=== PATIENT | female | born 1970 | race Caucasian/White ===

== ENCOUNTER 2017-02-01 12:51 | Inpatient (IN) | payer MEDICAID ==
[~2017-02-01] VITALS: Ht 167.6 cm; Wt 69.6 kg
[2017-02-01 13:50] LABS: BASOPHIL % 0.5 % (0-2); PLATELET COUNT 219 x10^3mcL (130-400)
[2017-02-01 14:07] LABS: microscopic required? NO
[2017-02-01 14:18] LABS: UA SPECIFIC GRAVITY <=1.005 (1.005-1.035); urine erythrocyte NEGATIVE (NEGATIVE)
[2017-02-01 14:29] LABS: AMPHETAMINE QUAL UR NONE DETECTED (NEG <=1000)
[2017-02-01 14:40] LABS: ALBUMIN 3.4 g/dL (3.4-5.0); ALKALINE PHOSPHATASE 175 U/L (46-116); ALT/SGPT 88 U/L (14-59); AMYLASE 49 U/L (25-115); AST/SGOT 44 U/L (15-37); BILIRUBIN TOTAL 0.72 mg/dL (0.20-1.00); CALCIUM 8.9 mg/dL (8.5-10.1); CARBON DIOXIDE 22.9 mmol/L (21-32); CHLORIDE SERUM 92 mmol/L (98-107); CREATININE SERUM 0.8 mg/dL (0.6-1.0); GFR1 > 60 mL/min; LIPASE 316 IU/L (73-393); POTASSIUM SERUM 3.7 mmol/L (3.5-5.1); SODIUM SERUM 126 mmol/L (136-145); T4(THYROXINE) 10.9 ug/dL (4.7-13.3); TOTAL PROTEIN, SERUM 7.8 g/dL (6.4-8.2)
[2017-02-01 14:43] LABS: CHOLESTEROL 206 mg/dL (<200); HDL CHOLESTEROL 29 mg/dL (40-60)
[2017-02-01 14:44] LABS: GLUCOSE SERUM 715 mg/dL (74-106)
[2017-02-01 16:23] LABS: MAGNESIUM 2.2 mg/dL (1.8-2.4); PHOSPHOROUS 3.4 mg/dL (2.5-4.9)
[2017-02-01 16:26] LABS: CHOLESTEROL 204 mg/dL (<200); CHOLESTEROL/HDL RATIO 6.8; HDL CHOLESTEROL 30 mg/dL (40-60); TRIGLYCERIDES 413 mg/dL (<150)
[2017-02-01 16:55] VITALS: BP 124/59
[2017-02-01 20:53] VITALS: BP 114/56
[2017-02-01 21:33] LABS: CALCIUM 7.8 mg/dL (8.5-10.1); CARBON DIOXIDE 26.4 mmol/L (21-32); CHLORIDE SERUM 104 mmol/L (98-107); CREATININE SERUM 0.7 mg/dL (0.6-1.0); GFR1 > 60 mL/min; GLUCOSE SERUM 305 mg/dL (74-106); POTASSIUM SERUM 3.3 mmol/L (3.5-5.1); SODIUM SERUM 136 mmol/L (136-145)
[2017-02-02] VITALS (9 sets, daily range): BP systolic 97–127; BP diastolic 44–68
[2017-02-02 06:08] LABS: BASOPHIL % 0.5 % (0-2); PLATELET COUNT 212 x10^3mcL (130-400); RED CELL DISTRIBUTION WIDTH 13.8 % (11.5-14.5)
[2017-02-02 06:41] LABS: CALCIUM 8.3 mg/dL (8.5-10.1); CARBON DIOXIDE 26.6 mmol/L (21-32); CHLORIDE SERUM 107 mmol/L (98-107); CREATININE SERUM 0.5 mg/dL (0.6-1.0); GFR1 > 60 mL/min; GLUCOSE SERUM 186 mg/dL (74-106); MAGNESIUM 2.1 mg/dL (1.8-2.4); PHOSPHOROUS 3.1 mg/dL (2.5-4.9); POTASSIUM SERUM 3.9 mmol/L (3.5-5.1); SODIUM SERUM 141 mmol/L (136-145)
[2017-02-03 05:13] VITALS: BP 106/50
[2017-02-03 06:11] LABS: PLATELET COUNT 205 x10^3mcL (130-400); RED CELL DISTRIBUTION WIDTH 14.1 % (11.5-14.5)
[2017-02-03 06:32] LABS: CALCIUM 8.5 mg/dL (8.5-10.1); CARBON DIOXIDE 24.2 mmol/L (21-32); CHLORIDE SERUM 104 mmol/L (98-107); CREATININE SERUM 0.6 mg/dL (0.6-1.0); GFR1 > 60 mL/min; GLUCOSE SERUM 310 mg/dL (74-106); MAGNESIUM 1.9 mg/dL (1.8-2.4); POTASSIUM SERUM 3.7 mmol/L (3.5-5.1); SODIUM SERUM 136 mmol/L (136-145)
[2017-02-03 09:30] VITALS: BP 115/73
[2017-02-03 12:27] LABS: ATYPICAL LYMPH 4 %; BAND NEUTROPHIL 0 % (0-10); BASOPHIL 0 % (0-2); MONOCYTE 5 % (0-7); SEGMENTED NEUTROPHILS 38 % (37-75)
[2017-02-03 12:28] LABS: PLATELET MORPHOLOGY PLATELETS NORMAL; rbc morphology (normal/abnorm) ABNORMAL (NORMAL)
[2017-02-03 14:45] VITALS: BP 126/50
[2017-02-03] MEDS ORDERED: LIPI10 PO (15:02)
[2017-02-03] MEDS ORDERED: ZES10 PO (15:02)
[2017-02-03] MEDS ORDERED: METFORMIN HCL1000 MG PO (15:03)
[2017-02-03] MEDS ORDERED: BG FS (15:03)
[2017-02-03] MEDS ORDERED: GLU5 PO (15:04)
[2017-02-03 15:24] VITALS: BP 126/50
== END 2017-02-03 16:51 | disposition home or self-care (01) | DRG 420 ==
LOC: ED 12:51 → DU 15:22
PROVIDERS: Emergency Medicine; Family Medicine; ADMIT Family Medicine
DX: E11.00 Type 2 diabetes mellitus with hyperosmolarity without nonketotic hyperglycemic-hyperosmolar coma (NKHHC) (principal); E87.8 Other disorders of electrolyte and fluid balance, not elsewhere classified; E87.1 Hypo-osmolality and hyponatremia; E83.51 Hypocalcemia; I10 Essential (primary) hypertension; E78.5 Hyperlipidemia, unspecified; R74.0 Nonspecific elevation of levels of transaminase and lactic acid dehydrogenase [LDH]; Z68.24 Body mass index [BMI] 24.0-24.9, adult
CPT/HCPCS: 36600; 83880; J1815; J7030; Q0092

== ENCOUNTER 2017-10-20 17:13 | Emergency (ER) | payer MEDICAID ==
[~2017-10-20] VITALS: Ht 165.1 cm; Wt 72.6 kg
[~2017-10-20 17:13] MED LIST: BG FS; GLU5 PO; LIPI10 PO; METFORMIN HCL1000 MG PO; ZES10 PO
[2017-10-20 17:27] VITALS: Ht 165.1 cm; Wt 72.6 kg
[2017-10-20 19:01] LABS: BASOPHIL % 0.5 % (0-2); PLATELET COUNT 214 x10^3mcL (130-400)
[2017-10-20 19:03] LABS: RED CELL DISTRIBUTION WIDTH 14.6 % (11.5-14.5)
[2017-10-20 19:39] LABS: ALBUMIN 3.6 g/dL (3.4-5.0); ALKALINE PHOSPHATASE 129 U/L (46-116); ALT/SGPT 114 U/L (14-59); AST/SGOT 46 U/L (15-37); BILIRUBIN TOTAL 0.5 mg/dL (0.20-1.00); CALCIUM 9.3 mg/dL (8.5-10.1); CARBON DIOXIDE 26.2 mmol/L (21-32); CREATININE SERUM 0.6 mg/dL (0.6-1.0); GFR1 > 60 mL/min; GLUCOSE SERUM 156 mg/dL (74-106); LIPASE 169 IU/L (73-393); TOTAL PROTEIN, SERUM 7.6 g/dL (6.4-8.2)
[2017-10-20 19:58] LABS: CHLORIDE SERUM 103 mmol/L (98-107); POTASSIUM SERUM 3.7 mmol/L (3.5-5.1); SODIUM SERUM 138 mmol/L (136-145)
[2017-10-20 23:10] VITALS: BP 138/56
== END 2017-10-20 23:10 | disposition home or self-care (01) ==
LOC: ED 17:13
PROVIDERS: Emergency Medicine
DX: R07.89 Other chest pain (principal); M79.602 Pain in left arm; R06.02 Shortness of breath; I10 Essential (primary) hypertension; E11.9 Type 2 diabetes mellitus without complications
CPT/HCPCS: 36415; Q0092

== ENCOUNTER 2018-06-22 10:51 | Emergency (ER) | payer MEDICAID ==
[~2018-06-22] VITALS: Ht 167.6 cm; Wt 72.1 kg
[2018-06-22 11:27] VITALS: Ht 167.6 cm; Wt 72.1 kg
[2018-06-22 14:40] VITALS: BP 120/43
== END 2018-06-22 14:40 | disposition home or self-care (01) ==
LOC: ED 10:51
DX: M54.6 Pain in thoracic spine (principal); S16.1XXA Strain of muscle, fascia and tendon at neck level, initial encounter; I10 Essential (primary) hypertension; E11.9 Type 2 diabetes mellitus without complications; X58.XXXA Exposure to other specified factors, initial encounter; Y93.89 Activity, other specified; Y92.89 Other specified places as the place of occurrence of the external cause; Y99.8 Other external cause status; Z90.89 Acquired absence of other organs
CPT/HCPCS: 72072; J1885; J3010; Q0162

== ENCOUNTER 2019-02-06 14:41 | Emergency (ER) | payer MEDICAID ==
[~2019-02-06] VITALS: Ht 160 cm; Wt 74.8 kg
[2019-02-06 14:50] VITALS: Ht 160 cm; Wt 74.8 kg
[2019-02-06 16:49] LABS: microscopic required? YES; urine erythrocyte NEGATIVE (NEGATIVE)
[2019-02-06 17:28] LABS: CALCIUM 8.7 mg/dL (8.5-10.1); CHLORIDE SERUM 105 mmol/L (98-107); CREATININE SERUM 0.6 mg/dL (0.6-1.0); GFR1 > 60 mL/min; GLUCOSE SERUM 105 mg/dL (74-106); SODIUM SERUM 143 mmol/L (136-145)
[2019-02-06 17:32] LABS: ALBUMIN 3.5 g/dL (3.4-5.0); ALKALINE PHOSPHATASE 133 U/L (46-116); ALT/SGPT 69 U/L (14-59); AST/SGOT 55 U/L (15-37); LIPASE 267 IU/L (73-393)
[2019-02-06 21:14] VITALS: BP 101/54
== END 2019-02-06 21:14 | disposition home or self-care (01) ==
LOC: ED 14:41
PROVIDERS: Emergency Medicine
DX: K52.9 Noninfective gastroenteritis and colitis, unspecified (principal); I10 Essential (primary) hypertension; E11.9 Type 2 diabetes mellitus without complications
CPT/HCPCS: J1885; J2405; J7030; Q9967

== ENCOUNTER 2019-02-09 18:38 | Inpatient (IN) | payer MEDICAID ==
[~2019-02-09] VITALS: Ht 170.2 cm; Wt 74.8 kg
[2019-02-09 18:47] VITALS: Ht 170.2 cm; Wt 74.8 kg
[2019-02-09 19:25] LABS: BASOPHIL % 0.6 % (0-2); PLATELET COUNT 252 x10^3mcL (130-400); RED CELL DISTRIBUTION WIDTH 14.1 % (11.5-14.5)
[2019-02-09 19:28] LABS: CALCIUM 8.7 mg/dL (8.5-10.1); CARBON DIOXIDE 27.8 mmol/L (21-32); CHLORIDE SERUM 102 mmol/L (98-107); CREATININE SERUM 0.7 mg/dL (0.6-1.0); GFR1 > 60 mL/min; GLUCOSE SERUM 118 mg/dL (74-106); POTASSIUM SERUM 4.2 mmol/L (3.5-5.1); SODIUM SERUM 139 mmol/L (136-145)
[2019-02-09 19:33] LABS: ALBUMIN 3.5 g/dL (3.4-5.0); ALKALINE PHOSPHATASE 125 U/L (46-116); ALT/SGPT 74 U/L (14-59); AST/SGOT 59 U/L (15-37); BILIRUBIN TOTAL 0.58 mg/dL (0.20-1.00)
--- NOTE | 2019-02-09 19:33 | NUR ---
PT BIB SON [facility] C/O WORSENING LOWER BILATERAL QUADRANT PAIN AND NAUSEA X2 WEEKS. PT WAS SEEN HERE THIS PAST "THURSDAY FOR AN INTESTINAL INFECTION." PT ALSO C/O OF THROBBING LIKE HEADACHE TO TOP OF HEAD X3 DAYS. DENIES ANY VISION CHANGES, DIZZINESS. PT ALSO REPORTS 2-3 EPISODES OF VOMITING THIS AFTERNOON. NO VOMITING NOTED AT THIS TIME. PT IS AAOX4, NO DISTRESS NOTED, RESP E/U, SKIN IS PINK WARM AND DRY. PT INSTRUCTED TO OBTAIN URINE SAMPLE. PT AMBULATED TO RESTROOM AND BACK TO [facility] WITH A STEADY GAIT. PT GOWNED AND PLACED IN MONITOR, VSS. AWAITING MSE BY . WILL CONT TO MONITOR.
[2019-02-09 19:34] LABS: TOTAL PROTEIN, SERUM 8.3 g/dL (6.4-8.2)
--- NOTE | 2019-02-09 21:15 | NUR ---
MEDICATED PT PER MD ORDERS, SEE EMAR. PT VERBALIZED UNDERSTANDING OF MECIATION TEACHING.
[2019-02-09] MEDS ORDERED: ZOFRAN8 MG PO (21:20)
[2019-02-09] MEDS ORDERED: LEVOFLOXACIN500 M1 PO (21:20)
[2019-02-09 21:21] LABS: CHOLESTEROL/HDL RATIO 4.5; MAGNESIUM 2.2 mg/dL (1.8-2.4)
[2019-02-09] MEDS ORDERED: FLA500 PO (21:21)
[2019-02-09] MEDS ORDERED: TRAMADOL HCL50 MG PO (21:22)
[2019-02-09] MEDS ORDERED: JANUMET 50-1,01 EACH PO (21:22)
[2019-02-09] MEDS ORDERED: EPZICOM1 TAB (21:22)
[2019-02-09] MEDS ORDERED: ASPIR 8181 MG PO (21:23)
[2019-02-09 21:32] LABS: FREE T4 1.15 ng/dL (0.76-1.46); FREE THYROXINE INDEX 3.3 ug/dL (1.4-4.5)
--- NOTE | 2019-02-09 21:35 | NUR ---
GAVE REPORT ADRIANNA KATHLEEN RN ON [facility]IT WHO WILL ASSUME FURTHER CARE OF THIS PATINET.
[2019-02-09 21:43] LABS: microscopic required? NO
--- NOTE | 2019-02-09 21:45 | NUR ---
RECEIVED PT [employer]IA [employer] FROM [facility], ACCOMPANIED BY TRANSPORTER AND PT'S SON. PT A/A/O X 4, CALM, COOPERATIVE; WEARS GLASSES (NOT W/ PT). AMBULATORY, NO GAIT OR BALANCE IMPAIRMENT NOTED WHEN WALKING FROM GURNEY TO BED. DENIES CHEST PAIN OR DISCOMFORT AT THIS TIME. NO ACUTE RESPIRATORY DISTRESS NOTED. ABD SOFT, ROUND, NON-TENDER, NORMOACTIVE BOWEL SOUNDS X 4 QUADS, LAST BM 02/06/19, FORMED. IV SITE RAC 20G, CDI. ORIENTED PT AND SON TO ROOM, BED CONTROLS, CALL LIGHT SYSTEM. SIDE RAILS UP X 2, BED IN LOW POSITION. WILL ENDORSE TO XIN KATHLEEN.
[2019-02-09 21:46] LABS: T3 TOTAL 1.05 ng/mL
[2019-02-09 21:49] LABS: UA SPECIFIC GRAVITY 1.015 (1.005-1.035); urine erythrocyte NEGATIVE (NEGATIVE)
[2019-02-09 21:58] LABS: AMPHETAMINE QUAL UR NONE DETECTED (See below)
[2019-02-09 23:21] VITALS: BP 127/52
--- NOTE | 2019-02-10 05:13 | NUR ---
PT SLEPT AT LONG INTERVALS. PT VERBALIZED SHE HAS MINIMAL ABDL PAIN AT THIS TIME. NO EPISODE OF N/V. PT ADVISED REGARDING DIET ( NPO EXCEPT MEDS ) ORDERED. SHE AMBULATES TO THE RESTROOM INDEPENDENTLY. SHE HAD NO BM THIS SHIF. IVF D5NS INFUSING WELL AT 50 CC/HR VIA RTAC.
[2019-02-10 05:35] VITALS: BP 103/53
--- NOTE | 2019-02-10 05:54 | NUR ---
PT C/O HEADACHE 12/01 .TYLENOL 650 MG PO GIVEN.
[2019-02-10 06:29] LABS: BASOPHIL % 0.7 % (0-2); PLATELET COUNT 217 x10^3mcL (130-400); RED CELL DISTRIBUTION WIDTH 14.2 % (11.5-14.5)
[2019-02-10 06:51] LABS: CALCIUM 8.8 mg/dL (8.5-10.1); CHLORIDE SERUM 102 mmol/L (98-107); CREATININE SERUM 0.7 mg/dL (0.6-1.0); GFR1 > 60 mL/min; GLUCOSE SERUM 114 mg/dL (74-106); POTASSIUM SERUM 3.8 mmol/L (3.5-5.1); SODIUM SERUM 141 mmol/L (136-145)
--- NOTE | 2019-02-10 07:25 | NUR ---
RECEIVED PT. IN BED A/A/O X3. NO SOB, NO N/V NOTED. PT. DENIES ANY PAIN AT THIS TIME. D5NS RUNNING AT 50 CC/HR VIA IV SITE AT R AC. SCD TO BLE MAINTAINED. BED IN LOW POS., CALL LIGHT WITHIN REACH. SIDE RAILS UP X3.
[2019-02-10 09:02] VITALS: BP 103/44
[2019-02-10] MEDS ORDERED: SIMVASTATIN20 M1 PO (10:44)
[2019-02-10] MEDS ORDERED: LEVEMIR100 U/M1 SQ (10:44)
[2019-02-10] MEDS ORDERED: NAPROXEN1 POW PO (10:45)
[2019-02-10] MEDS ORDERED: GOOD SENSE OMEP20 MG PO (10:46)
[2019-02-10] MEDS ORDERED: METOPROLOL TART25 M1 PO (10:46)
[2019-02-10] MEDS ORDERED: EPZICOM1 TAB PO (10:49)
[2019-02-10] MEDS ORDERED: LIPI10 PO (10:49)
[2019-02-10] MEDS ORDERED: GLU5 PO (10:49)
[2019-02-10] MEDS ORDERED: ZOFRAN8 MG PO (10:49)
--- NOTE | 2019-02-10 14:10 | NUR ---
MOVIPREP DOSE 1 STARTED.
--- NOTE | 2019-02-10 16:17 | NUR ---
Discount pharmacy card and list to low cost medical clinics given to patient by Ashley.
--- NOTE | 2019-02-10 16:46 | NUR ---
PT C/O NAUSEA, ZOFRAN GIVEN IVP . WILL CONTINUE TO MONITOR, CALL LIGHT WITHIN REACH, BED IN LOW POSITION.
--- NOTE | 2019-02-10 16:57 | NUR ---
PT RESTLESS AND MOANING. REPORTING PAIN 12/01. REPOSITIONED AND MEDICATION ADMINISTERED. WILL REASSES IN 1 HOUR.
--- NOTE | 2019-02-10 17:30 | NUR ---
URINE SPECIMEN COLLECTED AND SENT TO LAB FOR URINE HCG TEST.
--- NOTE | 2019-02-10 17:45 | NUR ---
PT LYING IN BED ASLEEP. PT REPORTED PAIN OF 2/10. ALL NEEDS ADDRESSED AT THIS TIME. CALL LIGHT WITHIN REACH.
--- NOTE | 2019-02-10 18:20 | NUR ---
REMAINS IN STABLE CONDITION AT THIS TIME. CONSENT FOR COLONOSCOPY OBTAINED EARLIER TODAY. MOVIPREP DOSE 2 WILL BE ADMINISTERED TOMORROW AM PER PACKAGE'S INSTRUCTIONS.
[2019-02-10 19:30] VITALS: BP 126/54
--- NOTE | 2019-02-10 19:30 | NUR ---
RECEIVED PT IN BED AWAKE, ALERT,ORIENTED X4. LUNGS CTA. NO SOB ON ROOM AIR. BOWEL SOUNDS ACTIVE. PT WAS STARTED ON BOWEL PREP. NO BM YET AT THIS TIME. W/ IVF D5NS AT 50 CC /HR VIA RTAC. CALL LIGHT W/IN REACH.
[2019-02-10 20:48] VITALS: BP 116/54
--- NOTE | 2019-02-10 22:39 | NUR ---
PT STATED SHE FEELS LIKE HAVING A BOWEL MOVEMENT AND TRIED BUT WAS NOT ABLE TO. PT THEN C/O HAVING ABDL PAIN 01/01. PT MEDICATED W/ TORADOL 15 MG IV FOR PAIN.
--- NOTE | 2019-02-10 22:45 | NUR ---
PT REQUESTED TO HAVE IV ON RTAC REMOVED . PT STATED SHE FEELS VERY UNCOMFORTABLE W/ THE IV SITE. IV REMOVED. STARTED NEW IV ON THE LT HAND. PT TOLERATED PROCEDURE WELL.
--- NOTE | 2019-02-11 00:05 | NUR ---
INFORMED DR. ANTONIO THAT PT STILL UNABLE TO HAVE A BOWEL MOVEMENT AFTER ALL THE LAXATIVES THAT SHE TOOK. PER DR. ANTONIO TO GIVE THE REST OF THE LAXATIVES THAT ARE DUE AND SEE IF PT WILL EVENTUALLY HAVE A BOWEL MOVEMENT .
--- NOTE | 2019-02-11 02:16 | NUR ---
INFORMED DR. ANTONIO THAT PT HAD NO BOWEL MOVENT YET AND THAT PT SHE REFUSES TO TAKE THE OTHER HALF DOSE OF MOVIPREP SAYING THAT HER STOMACH FEELS SO FULL.
--- NOTE | 2019-02-11 02:48 | NUR ---
FLEET ENEMA ADMINISTERED ORDERED.
--- NOTE | 2019-02-11 03:39 | NUR ---
PT HAD A SMALL BOWEL MOVEMENT AFTER FLEET ENEMA. PT THEN FELT NAUSEATED AND WAS MEDICATED W/ ZOFRAN 4 MG IV.
[2019-02-11 05:42] VITALS: BP 141/68
--- NOTE | 2019-02-11 05:55 | NUR ---
INFOMRED DR. ANTONIO THAT PT HAD A VERY SMALL AMOUNT OF BOWEL MOVEMENT AFTER THE FLEETS ENEMA. ALSO INFORMED HER THAT PT IS VERY UNCOMFORTABLE FEELING VERY FULL IN HER STOMACH. DOCTOR MADE AWARE THAT PT HAS DISTENDED ABDOMEN .
--- NOTE | 2019-02-11 06:12 | NUR ---
PT MEDICATED W/ TORADOL 15 MG IV FOR C/O ABDL PAIN 03/03.
--- NOTE | 2019-02-11 06:51 | NUR ---
CALLED DR. PULLIAM AND LEFT A MESSAGE. INFORMED HIM THAT PT WAS UNABLE TO HAVE A BOWEL MOVEMENT AFTER ALL THE LAXATIVES THAT SHE TOOK. ALSO INFORMED HIM THAT PT ALREADY REFUSED THE OTHER HALF DOSE OF MOVIPREP DUE TO FEELING VERY FULL AND DISTENDED.
[2019-02-11 06:52] LABS: BASOPHIL % 0.5 % (0-2); PLATELET COUNT 239 x10^3mcL (130-400); RED CELL DISTRIBUTION WIDTH 14.5 % (11.5-14.5)
[2019-02-11 07:08] LABS: CALCIUM 8.4 mg/dL (8.5-10.1); CARBON DIOXIDE 21.8 mmol/L (21-32); CHLORIDE SERUM 105 mmol/L (98-107); CREATININE SERUM 0.8 mg/dL (0.6-1.0); GFR1 > 60 mL/min; GLUCOSE SERUM 137 mg/dL (74-106); MAGNESIUM 2.1 mg/dL (1.8-2.4); PHOSPHOROUS 3.9 mg/dL (2.5-4.9); POTASSIUM SERUM 3.4 mmol/L (3.5-5.1); SODIUM SERUM 142 mmol/L (136-145)
--- NOTE | 2019-02-11 07:10 | NUR ---
RECEIVED PT FROM PEDIATRIC DENTIST RN. Tg/ONELIA. MED SURG. DENIES CHEST PAIN/PRESSURE. RESPIRATIONS EQUAL AND UNLABORED ON RA. DENIES SOB. NOTED ABDOMINAL DISTENTION, ABDOMEN FIRM, PT C/O PRESSURE TO ABDOMEN. PT RECEIVED LAXATIVES SINCE LAST NIGHT. PT STATES "I STILL HAVE NOT BEEN ABLE TO HAVE A BM." PT C/O MILD PAIN TO ABDOMEN 08/01. PT STATES PAIN HAS IMPROVED SINCE RECEIVING TORADOL THIS AM. IV TO LH PATENT AND INFUSING. NO REDNESS OR SWELLING NOTED. WILL CONTINUE TO MONITOR. CALL LIGHT IN REACH. BED IN LOWEST POSITION.
--- NOTE | 2019-02-11 07:27 | NUR ---
SPOKE WITH LIZETH FROM GI LAB, REPORT GIVEN, LIZETH MADE AWARE PT HAS STILL HAD NO BM, PER LIZETH WILL UPDATE DR. PULLIAM WHEN HE COMES IN, IF COLOSCOPY IS TO BE DONE TODAY WILL BED DONE AROUND 1100 TO 1200.
[2019-02-11 08:00] VITALS: BP 124/69
--- NOTE | 2019-02-11 08:26 | NUR ---
X-RAY AT BEDSIDE FOR KUB.
--- NOTE | 2019-02-11 09:07 | NUR ---
SPOKE WITH DR. PULLIAM REGARDING PT, PER DR. PULLIAM DO NOT GIVE PT ANY MORE LAXATIVES, GIVE PT SOAP SUDS ENEMA ONE TIME.
--- NOTE | 2019-02-11 10:29 | NUR ---
PT SITTING UP AT BEDSIDE. DR. KNOTT AT BEDSIDE EXPLAINING TO PT WILL WAIT FOR PT TO HAVE BM AND COLONSCOPY WILL MOST LIKELY BE DONE TOMORROW. PT VERBALIZED UNDERSTANDING. ALL QUESTIONS AND CONCERNS ADDRESSED. GOING TO ADMINISTER SOAP SUDS ENEMA. SPOKE WITH ROSANGELAVE IN GI PER GENIEVE DR. PULLIAM SAID NOT TO GIVE SOAP SUDS ENEMA AND TAKE PT DOWN FOR COLONSCOPY. PT FEELING NAUSES, HAD ONE EPISODE OF MINIMAL FLEM. MEDICATED PER EMAR. PT TAKEN OFF FLOOR FOR COLONSCOPY.
--- NOTE | 2019-02-11 12:13 | NUR ---
DR. HIDALGO CALL TO INFORM KEEP PATIENT NPO AND INSERT NGT TO INTERMITTEN SUCTION, WILL CONSULT SURGEON. INFORM CHANTEL LAUREN.
--- NOTE | 2019-02-11 12:40 | NUR ---
PT SITTING UP IN BED. RECEIVED BACK FROM GI LAB. PER DR. PULLIAM PLACE NGT TO INTERMITTENT SUCTION. ATTEMPTED TO PLACE NGT TO RIGHT NARE. PT UNABLE TO RELAX. PT REFUSING TO HAVE NGT PLACED. PAGED DR. RYAN TO NOTIFY. WILL CONTINUE TO MONITOR. CALL LIGHT IN REACH. BED IN LOWEST POSITION.
--- NOTE | 2019-02-11 12:44 | NUR ---
SPOKE WITH DR. HIDALGO UPDATED PT REFUSING TO HAVE NGT PLACE. PER DR. RYAN ORDER ATIVAN [address] HIDALGO STATES PT NEEDS TO HAVE NGT. PT WILL TO ATTEMPT IN AN HOUR.
--- NOTE | 2019-02-11 13:53 | NUR ---
ATTEMPTED TO PLACE IN NGT. PT STILL RESISTING ONCE NGT REACHES HER NARES. SPOKE WITH DR. RYAN INFORMED HIM PT IS STILL REFUSING. DR. RYAN AT BEDSIDE. EXPLAINING IMPORTANCE OF HAVING THE NGT PLACED. DR. RYAN EXPLAINED TO PT RISK INCLUDING IF PT REFUSES TO HAVE NGT PLACED. PT STATES "ITS TOO PAINFUL. JUST DO SURGERY. I DONT WANT IT" PER DR. RYAN WILL UPDATE SURGEON. WILL CONTINUE TO MONITOR. CALL LIGHT IN REACH. BED IN LOWEST POSITION.
--- NOTE | 2019-02-11 14:12 | NUR ---
PER DR. HIDALGO WHO SPOKE WITH DR. SOSA WILL NEED TO INSERTED NGT AND WILL USE HURRICANE SPRAY TO ASSIST DURING INSERTION. CHANTEL LAUREN WAS INFORM.
--- NOTE | 2019-02-11 14:41 | NUR ---
PT SITTING UP IN BED. NO ACUTE RESP DISTRESS NOTED ON RA. SISTER IN LAW AT BEDSIDE WITH PT. EXPLAINED TO PT AND SISTER IN LAW THE IMPORTANCE OF HAVING NG TUBE PLACED. ADMINISTERED BENZOCAINE SPAY. NGT PLACED IN RIGHT NARE SECURED WITH TAPE. PLACED ORDER FOR STAT KUB. SPOKE WITH RADIOLOGIST, PER RADIOLOGIST WILL BE UP SOON FOR XRAY. WILL CONTINUE TO MONITOR. CALL LIGHT IN PLACE. BED IN LOWEST POSITION.
--- NOTE | 2019-02-11 16:34 | NUR ---
PT SITTING UP IN BED. NO ACUTE RESP DISTRESS NOTED ON 2L NC. PT C/O PAIN TO ABDOMEN 8/10N PRESSURE. MEDICATED PER EMAR. IV TO LH PATENT AND INFUSING. NO REDNESS OR SWELLING NOTED. BLOOD SUGAR CHECKED WAS 106. NO COVERAGE NEEDED. WILL CONTINUE TO MONITOR. CALL LIGHT IN REACH. BED IN LOWEST POSITION.
--- NOTE | 2019-02-11 16:40 | NUR ---
PT SITTING UP IN BED. NO ACUTE RESP DISTRESS NOTED ON RA. PT HAVING NAUSEA NOTED 1 EPISODE OF VOMIT. DAUGHTER AT BEDSIDE EXPLAINED TO DAUGHTER PT POC. PT VERBALIZED UNDERSTANDING. CHARGE NURSE ASHTYN AT BEDSIDE. PULLED BACK NGT TO RIGHT NARE, ADVANCED NGT, VERIFIED PLACEMENT AND ABLE TO HEAR AIR IN STOMACH. ORDERED STAT KUB TO VERIFY PLACEMENT. WILL CONTINUE TO MONITOR. CALL LIGHT IN REACH. BED IN LOWEST POSITION.
[2019-02-11 17:12] VITALS: BP 132/57
--- NOTE | 2019-02-11 17:14 | NUR ---
X-RAY STAFFING MGR AT BEDSIDE FOR KUB.
--- NOTE | 2019-02-11 18:25 | NUR ---
PT SITTING UP IN BED. AT BEDSIDE. PT STATES ABDOMINAL PAIN IS STILL THERE 3/10 PRESSURE. INFORMED PT SHE ALREADY RECEIVED PAIN MEDICATION. PT STATES "CAN I JUST MAKE SURE I GET THE MEDICATION WHEN ITS DUE. I DONT WANT TO FEEL THE PAIN GET WORSE AGAIN" IV PATENT AND INFUSING TO LH. NO REDNESS OR SWELLING NOTED. NGT TUBE SECURED TO RIGHT NARE WITH TAPE TO LOW CONTINUOUS SUCTION. WILL ENDORSE TO CAR LOT ATTENDANT RN. CALL LIGHT IN REACH. BED IN LOWEST POSITION.
[2019-02-11 19:45] VITALS: BP 111/56
--- NOTE | 2019-02-11 19:45 | NUR ---
RECEIVED REPORT FROM DAY SHIFT NURSE. PT IS A/O X4. SPEECH IS CLEAR. CZECH SPEAKING. IS AT BEDSIDE. BP 111/56 HR 106. PULSES ARE MODERATE AND EQUAL ON ALL EXTREMITIES. NO PRESENCE OF EDEMA. LUNG SOUNDS ARE CTA ON RA WITH O2 SAT OF 95%. LAST BM WAS 02/11 - PT C/O OF LAST BM BEING HARD AND JUST A SMALL AMOUNT. ABD IS FIRM AND DISTENDED. BOWEL SOUNDS ARE ____ R NARE NGT LOW CONTINUOUS SUCTION. BRP. AMBULATORY. SKIN IS INTACT. PT IS COMPLAINING OF 3/10 PAIN ON ABD AREA. WILL MEDICATE PER MAR. IV TO LH INFUSING D5NS AT 100. IV IS PATENT AND INTACT. NO REDNESS OR SWELLING. CALL LIGHT WITHIN REACH. BED IN LOWEST POSITION. WILL CONTINUE TO MONITOR.
--- NOTE | 2019-02-11 20:25 | NUR ---
ROUTINE MEDICATIONS WERE GIVEN AND TOLERATED WELL. PT ALSO C/O 3/10 PAIN ON ABD. MEDICATED PER MAR. WILL REASSESS AND CONTINUE TO MACRINA.
--- NOTE | 2019-02-11 21:09 | NUR ---
RECEIVED A CALL FROM KATHLEEN, INFORM ME THAT PT STATUS REVIEWED FROM UTILIZATION AND WILL TRANSFER PT AND TRANSPORT WILL BE ARRANGE AND FOLLOW UP THURSDAY. NOTIFIED CHARGE NURSE RONALD.
--- NOTE | 2019-02-11 21:30 | NUR ---
RECOVERY RN-BEATRIS INFORMED ABOUT DR HIDALGO ORDER TODAY AT 1300 FOR A MRI OF ABDOMEN W/ WO CONTRAST TO R/O MASS COLONIC VS UTERINE.
--- NOTE | 2019-02-11 22:52 | NUR ---
PT IS WATCHING TV WITH AT BEDSIDE. BREATHING IS EVEN AND UNLABORED. NO RESP DISTRESS. PT DENIES ANY PAIN AT THIS TIME. ENCOURAGED PT TO USE CALL LIGHT WHEN IN NEED OF ASSISTANCE OR HAVING ANY PAIN. WILL CONTINUE TO MONITOR.
--- NOTE | 2019-02-12 01:25 | NUR ---
PT IS ASLEEP BUT EASILY AROUSED WHEN SPOKEN TO. BREATHING IS EVEN AND UNLABORED. NO RESP. DISTRESS. DENIES PAIN AT THIS TIME. NO ACUTE DISTRESS. BED IN LOWEST POSITION. CALL LIGHT WITHIN REACH. WILL CONTINUE TO MONITOR.
--- NOTE | 2019-02-12 02:59 | NUR ---
PT C/O OF 12/01 ABD PAIN. MEDICATED WITH TORADOL PER JUL ORDER. WILL REASSESS AND MONITOR EFFECTIVENESS. BED IN LOWEST POSITION. CALL LIGHT WITHIN REACH.
[2019-02-12 05:44] VITALS: BP 134/66
--- NOTE | 2019-02-12 05:54 | NUR ---
PT SLEPT IN LONG INTERVALS THROUGHOUT THE NIGHT. PT COMPLIED WITH NURSING CARE THROUGHOUT THE SHIFT W/ NO ACUTE EVENTS OVERNIGHT. COMFORT AND SAFETY MEASURES MAINTAINED. ALL NEEDS ASSESSED AND ATTENDED TO. WILL CONTINUE TO MONITOR AND ENDORSE CARE TO DAY SHIFT NURSE.
[2019-02-12 06:54] LABS: BASOPHIL % 0.4 % (0-2); PLATELET COUNT 239 x10^3mcL (130-400); RED CELL DISTRIBUTION WIDTH 14.5 % (11.5-14.5)
[2019-02-12 06:56] LABS: ALKALINE PHOSPHATASE 92 U/L (46-116); ALT/SGPT 44 U/L (14-59); AST/SGOT 31 U/L (15-37); BILIRUBIN TOTAL 0.72 mg/dL (0.20-1.00); CALCIUM 8.1 mg/dL (8.5-10.1); CARBON DIOXIDE 25.5 mmol/L (21-32); CHLORIDE SERUM 109 mmol/L (98-107); CREATININE SERUM 0.7 mg/dL (0.6-1.0); GFR1 > 60 mL/min; GLUCOSE SERUM 128 mg/dL (74-106); POTASSIUM SERUM 4.3 mmol/L (3.5-5.1); SODIUM SERUM 143 mmol/L (136-145); TOTAL PROTEIN, SERUM 6.7 g/dL (6.4-8.2)
--- NOTE | 2019-02-12 07:20 | NUR ---
ENDORSED CARE TO CHANTEL LAUREN.
[2019-02-12 07:26] LABS: ALBUMIN 2.9 g/dL (3.4-5.0)
--- NOTE | 2019-02-12 07:30 | NUR ---
RECEIVED PT FROM ROUGH AND TRUING MACHINE OPERATOR RN. Tg/OX4. MED SURG. DENIES CHEST PAIN/PRESSURE. RESPIRATIONS EQUAL AND UNLABORED ON RA. DENIES SOB. NOTED NGT TO RIGHT NARE SECURED TO LOW CONTINUOUS SUCTION. NOTED 160 ML OF LIGHT YELLOW DRAINAGE. PT STATES ABDOMINAL PAIN IS MILD TOLERABLE AT THIS TIME. IV TO LH PATENT AND INFUSING. NO REDNESS OR SWELLING NOTED. PT C/O BEING TIRED. WILL CONTINUE TO MONITOR. CALL LIGHT IN REACH. BED IN LOWEST POSITION.
[2019-02-12 08:16] VITALS: BP 120/70
--- NOTE | 2019-02-12 09:46 | NUR ---
SPOKE WITH DR. PULLIAM REGARDING ORDER FOR MIRALAX PER DR. PULLIAM DISCONTINUE MIRALAX
--- NOTE | 2019-02-12 11:23 | NUR ---
PT SITTING UP IN BED. NG TUBE TO LOW CONTINUOUS SUCTION. NO ACUTE RESP DISTRESS NOTED ON RA. PT C/O ADBOMINAL PAIN 8/10 AT THIS TIME PRESSURE. IV TO LH NOT ABLE TO FLUSH. NEW IV STARTED TO LFA BY CHARGE NURSE CLINT. PT GIVEN TORADOL IV FOR PAIN. IV ANTIBIOTIC INFUSING ORDERED. BLOOD SUGAR CHECKED WAS 92. NO COVERAGE NEEDED. WILL CONTINUE TO MONITOR. CALL LIGHT IN REACH. BED IN LOWEST POSITION.
--- NOTE | 2019-02-12 13:43 | NUR ---
PT SITTING UP AT BEDSIDE. DISCONNECTED NG TUBE FROM SUCTIONS, ASSISTED PT TO BATHROOM. PT ASKING TO AMBULATE IN HALLWAYS, PT WALKING AND TOLERATING WELL WITH DAUGHTER. IV ANTIBIOTICS INFUSING ORDERED. WILL CONTINUE TO MONITOR. ENCOURAGED PT TO CALL WHEN DONE WALKING TO RECONNECT SUCTION.
--- NOTE | 2019-02-12 15:46 | NUR ---
SPOKE WITH NEVILLE FROM CT. PER NEVILLE PT WILL BE RECEIVING CT ABDOMEN PELVIS WITH ORAL CONTRAST AND IV CONTRAST. ORAL CONTRAST IS TO BE GIVEN THROUGH NG TUBE. NEVILLE BROUGHT UP ORAL CONTRAST. ORAL CONTRAST IS TO BE GIVEN OVER 2 HOURS AFTER GIVEN PT IS TO WAIT 2 TO [address] CAN BE DONE. ORAL CONTRAST INFUSING THROUGH [place] [employer] EXPECTED TO BE DONE AT 1745. WILL CALL CT TO NOTIFY WHEN CONTRAST IS FINISHED. PROCESS EXPLAINED TO PT AND FAMILY. ALL QUESTIONS AND CONCERNS ADDRESSED. WILL CONTINUE TO MONITOR. CALL LIGHT IN REACH. BED IN LOWEST POSITION.
--- NOTE | 2019-02-12 16:05 | NUR ---
PT SITTING UP IN BED. NO ACUTE RESP DISTRESS NOTED ON RA. PT C/O ABDOMINAL PAIN PRESSURE 5/10. MEDICATED PER EMAR. ORAL CONTRAST INFUSING THROUGH [place] [employer] PT TOLERATING WELL. WILL CONTINUE TO MONITOR. CALL LIGHT IN REACH. BED IN LOWEST POSITION.
[2019-02-12 16:58] VITALS: BP 142/68
--- NOTE | 2019-02-12 18:14 | NUR ---
PT SITTING UP IN BED. NO ACUTE RESP DISTRESS NOTED ON RA. PT STATES PAIN TO ABDOMEN HAS IMPROVED SINCE RECEIVING PAIN MEDICATION. NGT SECURED TO RIGHT NARES, NOTED A TOTAL OF 140 ML OF DARK GREEN OUTPUT FROM SUCTION. ORAL CONTRAST FINISHED INFUSING, NGT CLAMPED. SPOKE WITH ROBERT FROM CT INFORMED HER CONTRAST IS FINISHED PER ROBERT WILL PICK PT UP AT 1930. IV TO RFA PATENT AND INFUSING TO LFA. NO REDNESS OR SWELLING NOTED. WILL ENDORSE TO TISSUE COORDINATOR RN. CALL LIGHT IN REACH. BED IN LOWEST POSITION.
--- NOTE | 2019-02-12 19:25 | NUR ---
PT RECEIVED FROM AM NURSE. PT A/O X4, [place]INGAPORE[place] SPEAKING, ABLE TO MAKE NEEDS KNOWN. FAMILY AT BEDSIDE. MED-SURG, DENIES ANY CP/PRESSURE. PULSES PALPABLE, NO EDEMA PRESENT. BREATHING IS EVEN AND UNLABORED, NO RESP DISTRESS NOTED. ABD SOFT AND DISTENDED, BOWEL TONES HYPOACTIVE, PT DENIES N/V. NGt TO RIGHT NARE IN PLACE, CLAMPED. PT AWAITING CT ABD+PELVIS AT THIS TIME. VOIDS FREELY, BRP. AMBULATORY WITH STEADY GAIT. SKIN IS WARM AND DRY, INTACT. PT DENIES HAVING ANY PAIN AT THIS TIME. IV TO LFA, PATENT AND INTACT, SITE WNL. NO ACUTE DISTRESS NOTED. CALL LIGHT WITHIN REACH. WILL CONT TO MONITOR.
--- NOTE | 2019-02-12 20:27 | NUR ---
SPOKE WITH ROBERT FROM CT REGARDING PT'S CT ABD+PELVIS. PER ROBERT, WILL BE ABLE TO TAKE PT DOWN SOME TIME SOON, WILL FOLLOW UP. PT UPDATED. WILL CONT TO MONITOR.
[2019-02-12 20:35] VITALS: BP 121/63
--- NOTE | 2019-02-12 21:17 | NUR ---
PT DISCONNECTED FROM IV; IV TO LFA INTACT. NGt TO RT NARE CLAMPED AND IN PLACE. PT ASSISTED TO CT VIA WHEELCHAIR ACCOMPANIED BY TECH AND FAMILY. NO ACUTE DISTRESS NOTED. WILL AWAIT RETURN TO FLOOR.
--- NOTE | 2019-02-12 21:35 | NUR ---
PT ARRIVED ONTO UNIT FROM CT VIA WHEELCHAIR ACCOMPANIED BY TECH AND FAMILY. IV CONNECTED TO LFA, INFUSING WELL, SITE WNL. NO ACUTE DISTRESS NOTED. WILL CONT TO MONITOR.
--- NOTE | 2019-02-12 22:19 | NUR ---
PT C/O 5/10 ABD PAIN, PRN NORCO GIVEN ORDERED. NO ACUTE DISTRESS NOTED. WILL CONT TO MONITOR.
--- NOTE | 2019-02-12 23:00 | NUR ---
RT NGt CONNECTED TO LOW CONTINUOUS SUCTION ORDERED, CLEAR DRAINAGE NOTED. NO ACUTE DISTRESS NOTED. WILL CONT TO MONITOR.
[2019-02-13 05:44] VITALS: BP 120/52
--- NOTE | 2019-02-13 05:57 | NUR ---
PT SLEPT AT INTERVALS THROUGHOUT THE EVENING. BREATHING IS EVEN AND UNLABORED, NO RESP DISTRESS NOTED. NGt TO RIGHT NARE IN PLACE TO LOW CONTINUOUS SUCTION WITH 50 ML GREENISH OUTPUT NOTED. NO ACUTE CHANGES ENCOUNTERED DURING SHIFT. ALL NEEDS MET AND ANTICIPATED. PT COMPLIANT WITH NURSING CARE. IV TO LFA, INTACT. CALL LIGHT WITHIN REACH. WILL ENDORSE CARE TO AM NURSE.
--- NOTE | 2019-02-13 06:54 | NUR ---
PT C/O 12/01 ABD PAIN, PRN TORADOL IVP GIVEN ORDERED. NO ACUTE DISTRESS NOTED.
--- NOTE | 2019-02-13 07:10 | NUR ---
RECEIVED PT FROM JUVENILE CORRECTIONAL OFFICER RN. Tg/DEVAUGHN4. MED SURG. DENIES CHEST PAIN/PRESSURE. RESPIRATIONS EQUAL AND UNLABORED ON RA. DENIES SOB. NGT TO RIGHT NARE TO LOW CONTINUOUS SUCTION, DRAINING DARK GREEN OUTPUT. PT DENIES ANY N/V. PT STILL HAS NOT HAD BM. PT DENIES ANY PAIN SINCE RECEIVING TORADOL THIS AM. IV PATENT AND INFUSING TO LFA. NO REDNESS OR SWELLING NOTED. WILL CONTINUE TO MONITOR. CALL LIGHT IN REACH. BED IN LOWEST POSITION.
[2019-02-13 07:19] LABS: CALCIUM 8.3 mg/dL (8.5-10.1); CARBON DIOXIDE 26.4 mmol/L (21-32); CHLORIDE SERUM 108 mmol/L (98-107); CREATININE SERUM 0.7 mg/dL (0.6-1.0); GFR1 > 60 mL/min; GLUCOSE SERUM 126 mg/dL (74-106); MAGNESIUM 2.1 mg/dL (1.8-2.4); PHOSPHOROUS 4.4 mg/dL (2.5-4.9); POTASSIUM SERUM 3.8 mmol/L (3.5-5.1); SODIUM SERUM 144 mmol/L (136-145)
[2019-02-13 07:23] LABS: BASOPHIL % 0.3 % (0-2); PLATELET COUNT 214 x10^3mcL (130-400); RED CELL DISTRIBUTION WIDTH 14.7 % (11.5-14.5)
--- NOTE | 2019-02-13 07:27 | NUR ---
PT IN NO ACUTE DISTRESS. CONTINUITY OF CARE ENDORSED TO AM NURSE. ALL QUESTIONS AND CONCERNS ADDRESSED.
[2019-02-13 08:17] VITALS: BP 129/59
--- NOTE | 2019-02-13 09:07 | NUR ---
PT SITTING UP IN BED. ASSISTED PT TO BATHROOM. PT SITTING IN CHAIR. NGT TO RIGHT NARE TO LOW CONTINUOUS SUCTION. IV PATENT AND INFUSING TO LFA. NO REDNESS OR SWELLING NOTED. FAMILY AT BEDSIDE. WILL CONTINUE TO MONITOR. CALL LIGHT IN REACH. BED IN LOWEST POSITION.
--- NOTE | 2019-02-13 11:57 | NUR ---
PT SITTING UP IN BED. FAMILY AT BEDSIDE. DR. LIANG AT BEDSIDE EXPLAINING TO PT AND FAMILY CURRENTLY POC AND LATEST CT ABDOMEN RESULTS. ALL QUESTIONS AND CONCERNS ADDRESSED. NGT TO RIGHT NARE RESECYRED WITH TAPE, TO LOW CONTINUOUS SUCTION. IV TUBING CHANGED. IV ANTIBIOTICS INFUSING OREDRED. NO REDNESS OR SWELLING NOTED. WILL CONTINUE TO MONITOR. CALL LIGHT IN REACH. BED IN LOWEST POSITION.
--- NOTE | 2019-02-13 15:23 | NUR ---
PT SITTING UP IN BED. NO ACUTE RESP DISTRESS NOTED ON RA. NGT TO RIGHT NARE, TO LOW CONTINUOUS SUCTIONS. PT DENIES ANY ABDOMINAL PAIN AT THIS TIME. IV ANTIBIOTIC INFUSING ORDERED. NO REDNESS OR SWELLING NOTED. WILL CONTINUE TO MONITOR. CALL LIGHT IN REACH. BED IN LOWEST POSITION.
--- NOTE | 2019-02-13 16:14 | NUR ---
PT SITTING UP IN BED. ASSISTED PT TO BATHROOM. NO ACUTE RESP DISTRESS NOTED ON RA. PT RECONNECTED TO NGT TO LOW CONTINUOUS SUCTION. BLOOD SUGAR CHECKED WAS 99. NO COVERAGE NEEDED. PT DENIES ANY ABDOMINAL PAIN AT THIS TIME. DENIES ANY N/V. WILL CONTINUE TO MONITOR. CALL LIGHT IN REACH. BED IN LOWEST POSITION.
[2019-02-13 17:00] VITALS: BP 127/52
--- NOTE | 2019-02-13 19:25 | NUR ---
PT RECEIVED FROM AM NURSE. PT A/O X4, ANGUILLAN SPEAKING, ABLE TO MAKE NEEDS KNOWN. FAMILY AT BEDSIDE. MED-SURG, DENIES ANY CP/PRESSURE. PULSES PALPABLE, NO EDEMA PRESENT. BREATHING IS EVEN AND UNLABORED, NO RESP DISTRESS NOTED. ABD SOFT AND DISTENDED, BOWEL TONES ACTIVE, PT DENIES N/V. NGt IN PLACE TO RIGHT NARE TO LOW CONTINUOUS SUCTION ORDERED, LIGHT GREEN DRAINAGE NOTED. VOIDS FREELY, BRP. AMBULATORY WITH STEADY GAIT. SKIN IS WARM AND DRY, INTACT. PT DENIES HAVING ANY PAIN AT THIS TIME. IVF INFUSING WELL TO LFA, PATENT AND INTACT, SITE WNL. NO ACUTE DISTRESS NOTED. CALL LIGHT WITHIN REACH. WILL CONT TO MONITOR.
--- NOTE | 2019-02-13 19:26 | NUR ---
ENDORSED CARE TO MARKETING ENGINEER RN FAYE. ALL QUESTIONS AND CONCERNS ADDRESSED.
--- NOTE | 2019-02-13 19:56 | NUR ---
PT C/O 10/01 ABD PAIN. PRN NORCO OFFERED, PT REFUSED AND STATES, "THAT MEDICATION GIVES ME A HEADACHE." PT REQUESTING TORADOL. PRN TORADOL IVP GIVEN ORDERED. NO ACUTE DISTRESS NOTED. WILL CONT TO MONITOR.
[2019-02-13 20:54] VITALS: BP 127/48
[2019-02-14 06:00] VITALS: BP 122/62
[2019-02-14 06:31] LABS: BASOPHIL % 0.4 % (0-2); PLATELET COUNT 220 x10^3mcL (130-400)
[2019-02-14 06:48] LABS: CALCIUM 8.1 mg/dL (8.5-10.1); CHLORIDE SERUM 108 mmol/L (98-107); CREATININE SERUM 0.8 mg/dL (0.6-1.0); GFR1 > 60 mL/min; GLUCOSE SERUM 101 mg/dL (74-106); POTASSIUM SERUM 3.4 mmol/L (3.5-5.1); SODIUM SERUM 145 mmol/L (136-145)
--- NOTE | 2019-02-14 06:52 | NUR ---
PT SLEPT AT INTERVALS THROUGHOUT THE EVENING. BREATHING IS EVEN AND UNLABORED, NO RESP DISTRESS NOTED. NGt TO RIGHT NARE IN PLACE TO LOW CONTINUOUS SUCTION WITH 200 ML GREENISH OUTPUT NOTED. PT C/O 11/01 ABD PAIN, PRN TORADOL IVP GIVEN ORDERED. NO ACUTE CHANGES ENCOUNTERED DURING SHIFT. ALL NEEDS MET AND ANTICIPATED. PT COMPLIANT WITH NURSING CARE. IV TO LFA, INTACT. CALL LIGHT WITHIN REACH. WILL ENDORSE CARE TO AM NURSE.
[2019-02-14 07:31] LABS: RED CELL DISTRIBUTION WIDTH 14.7 % (11.5-14.5)
--- NOTE | 2019-02-14 08:00 | NUR ---
RECIEVED PATIENT ALERT AND ORIENTED TIMES FOUR. PATIENT WITH NG TO INTERMITTANT SUCTIONING AT LOW SETTING AND GREENISH YELLOW OUTPUT NOTED. IV INTACT AN PATIENT GIVEN HER PROTONIX ORDERED. SHE DENIES PAIN AT THIS TIME AND HAS BEEN TOLERATING OOB TO THE RESTROOM. LUNGS ARE CLEAR AND BOWEL SOUNDS ARE NOTED TO BE HYPOACTIVE. PATIENT HAS MINIMAL DISTENTION AT THIS TIME. SHE HAS SO FAR 75CC OUTPUT VIA THE NG. PATIENT HAS NOTED LABS THIS AM AT POTASSIUM AT 3.4, CHLORIDE AT 108, BUN AT 6.0 AND CA AT 8.1 AND PHOS AT 5.0. PATIENT HAS BLOOD SUGAR THIS AM AT 113 AND THE ALBUMIN AT 2.9. VITALS THIS AM AT 98.2, 71, 18, 122/62, 98%. THE CHEST XRAY IS NEGATIVE. PATIENT WITH HISTORY OF HTN, DIABETES, APENDECTOMY. PATIENT WITH CT OF ABDOMEN AND PATIENT AHS NOTED EITHER MASS OR COLITIS AND INTRA UTERINE DEVICE IS NOTED IN PLACE. PATIENT FOR POSSIBLE HIGHER LEVEL OF CARE. T IS TO SEE
--- NOTE | 2019-02-14 08:07 | NUR ---
Patient received in bed. NG tube in place and connected to suctioning. 30 mL amount drainage noted in suction canister. Patient continues to be on NPO staatus. No signs of distress noted. Will continue to monitor. Call light within reach.
[2019-02-14 08:47] VITALS: BP 117/59
--- NOTE | 2019-02-14 12:59 | NUR ---
PATIENT HAD SWELLING TO THE IV SITE AND ATTEMPTED AND WAS ABLE TO RECEIVE BLOOD FLASH BUT THE PATIENT COMPLAINS IT IS TOO PAINFUL TO ADVANCE. SHE IS REQUESTING ANOTHER NURSE START HER IV. PATIENT HAS A FRIEND OR FAMILY AT BEDSIDE AT THIS TIME AND IS SUPPORTIVE WITH CARE. THE NG IS TO LOW INTERMITTATN SUCTION ORDERED AND CONTINUED. PATIENT WAS ANXIOUS AND STATES THE NG IS NOT WORKING EXPLAINED THE SUCTION IS LOW PER THE MD ORDER AND TO REDUCE THE TRAMA TO THE STOMACH.
--- NOTE | 2019-02-14 14:55 | NUR ---
ANNA THE ONE TO ONE NURSE STARTED IV TO THE LEFT ARM WITH A 24 AND PATIENT TOLERATED WELL. THE OUTPUT OF THE NG IS AT 250 AT THIS TIME OTUPUT REMAINS GREENISH AND OILY IN APPEARANCE. PATIENT HAS COMPLAINED OF FEELING THE SUCTIONING GO UP THE TUBE AND HAS A FEELING OF BEING LIGHT HEADED.
[2019-02-14 17:36] VITALS: BP 125/51
--- NOTE | 2019-02-14 18:15 | NUR ---
PATIENT HAS 300 CC TOTAL IN THE SUCTION CATH AND NOTED TO BE REDUCED WHEN PATIENT IS LYING DOWN AND FAIRLY STILL. SHE STATES SHE IS OK RIGHT NOW. IV INTACT AND RECIEVED THE ANTIBIOTICS AND NO ADVERSE REACTION NOTED. THE 24 TO THE LEFT ARM REMAIN VIABLE AT THIS TIME.
--- NOTE | 2019-02-14 20:04 | NUR ---
PT RECIEVED AAO SITTING ON THE BED AND FAMILY AT THE BEDSIDE,REG RESP NO SOB,ABDO IS SOFT WITH ACTIVE BOWEL SOUNDS,V/S STABLE,PT HAS NGT TO THE RT NARES WHICH IS TO LOW INTERMITTENT SUCTION,NO PAIN REPORTED AT THIS TIME, KEPT CLEAN AND DRY TO TOUCH,CALL LIGHT EASY REACHED AND WILL CONTINUE TO MONITOR.
[2019-02-14 21:17] VITALS: BP 137/61
--- NOTE | 2019-02-14 23:19 | NUR ---
PT WITH C/O IRRITATION OF THE THROAT AND COUGH,RESIDENT WAS CALLED AND MADE AWARE AND WAITING FOR ORDERS AT THIS TIME,WILL CONTINUE TO MONITOR.
--- NOTE | 2019-02-15 01:07 | NUR ---
PT SLEEPING SOUNDLY AT THIS TIME,WILL CONTINUE TO MONITOR.
[2019-02-15 05:26] VITALS: BP 112/40
[2019-02-15 06:35] LABS: BASOPHIL % 0.3 % (0-2); PLATELET COUNT 227 x10^3mcL (130-400)
--- NOTE | 2019-02-15 06:37 | NUR ---
PTHAD A RESTING NIGHT NO CHANGE THIS TIME AND WILL CONTINUE TO MONITOR.
[2019-02-15 06:50] LABS: CALCIUM 8.4 mg/dL (8.5-10.1); CARBON DIOXIDE 25.1 mmol/L (21-32); CHLORIDE SERUM 108 mmol/L (98-107); CREATININE SERUM 0.8 mg/dL (0.6-1.0); GFR1 > 60 mL/min; GLUCOSE SERUM 100 mg/dL (74-106); MAGNESIUM 1.9 mg/dL (1.8-2.4); PHOSPHOROUS 4.8 mg/dL (2.5-4.9); POTASSIUM SERUM 3.5 mmol/L (3.5-5.1); SODIUM SERUM 144 mmol/L (136-145)
[2019-02-15 06:59] LABS: RED CELL DISTRIBUTION WIDTH 14.6 % (11.5-14.5)
[2019-02-15 09:10] VITALS: BP 98/45
--- NOTE | 2019-02-15 10:02 | NUR ---
02/15/2019: 0945: PATIENT TAKING SHOWER PER MD ORDER. DAUGHTER PRESENT TO ASSIST. IV LINE AND NG TUBE COVERED WITH PLASTIC BAGS. WILL CONTINUE TO MONITOR.
--- NOTE | 2019-02-15 14:44 | NUR ---
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 RDN Visit (02/15): Patient said that she does not have any N/V/D/C at this time and that she has good appetite, however patient is NPO right now to wait for surgeon's recommendation. Per progress note (02/14), Pt pending further evaluation with tissue biopsy results from 02/11/19. Pending tumor marker results. Defer to surgical recommendations, continues to defer surgery until pending studies result. Per colon biopsy report, patient has adenocarcinoma with mucinous features. Patient's diet has been changed to full liquid right now. Problem with: N/V/D/C: none Problems with: Chewing/Swallowing: none Current appetite: good Recent wt change: none %wt change: n/a Vitamin/Supplement use: none Special diet at home: regular Physical activity: sedentary Nutrition education given: none at this time. Food-drug interactions: none Education given: n/a Estimated Nutritional Needs Based on body weight 78.4 kg Energy: 0457-0590 kcal/d (25-30 kcal/kg) Protein: 94-109 g/d (1.2-1.4 g/kg) - adenocarcinoma Fluid: 9555-1264 ml/d (1 ml/kcal) or per doctor Nutrition Diagnosis 1. Inadequate oral intake related to pending procedure as evidenced by patient being NPO since admission. Intervention 1. Recommend continuing full liquid diet at this time. Monitor/Evaluate Goal: PO intake at least 75% of estimated needs Monitor: PO intake, Labs, GI function F/U in 2-3 days as high risk
--- NOTE | 2019-02-15 14:45 | NUR ---
1. Recommend continuing full liquid diet at this time
[2019-02-15 17:04] VITALS: BP 114/57
--- NOTE | 2019-02-15 20:10 | NUR ---
PT RECIEVED AAO SITING ON THE BED WITH FAMILY AT THE BEDSIDE,ABDO IS SOFT DISTENTED WITH ACTIVE BOWEL SOUNDS,PT HAS NGT TO THE NARES TO INTREMITTENT SUCTION WITH GREENISH SECREATION,NO PAIN REPORTED AT THIS TIME,KEPT CLEAN AND DRY TO,TOUCH,BED IN THE LOW POSITION AND LOCKED,CALL LIGHT EASY REACHED AND WILL CONTINUE TO MONITOR.
--- NOTE | 2019-02-15 20:29 | NUR ---
19: 1900: PATIENT KEPT COMFORTABLE IN BED. NO SIGNS OF DISTRESS NOTED. NO C/O PAIN. FAMILY AT BEDSIDE. ENDORSED TO [facility]DU[address] RO[address] FREIGHT RN.
[2019-02-15 20:33] VITALS: BP 131/63
--- NOTE | 2019-02-15 23:22 | NUR ---
PT SLEEPING AT THIS TIME,WILL CONTINUE TO MONITOR.
[2019-02-16 05:47] VITALS: BP 140/52
--- NOTE | 2019-02-16 06:31 | NUR ---
PT HAD A RESTING NIGHT NO CHANGE AT THIS TIME,CALL LIGHT EASY REACHED AND WILL CONTINUE TO MONITOR.
[2019-02-16 06:42] LABS: BASOPHIL % 0.5 % (0-2); PLATELET COUNT 281 x10^3mcL (130-400)
[2019-02-16 06:43] LABS: CALCIUM 8.6 mg/dL (8.5-10.1); CARBON DIOXIDE 27.5 mmol/L (21-32); CHLORIDE SERUM 108 mmol/L (98-107); CREATININE SERUM 0.8 mg/dL (0.6-1.0); GFR1 > 60 mL/min; GLUCOSE SERUM 112 mg/dL (74-106); POTASSIUM SERUM 3.5 mmol/L (3.5-5.1); SODIUM SERUM 145 mmol/L (136-145)
--- NOTE | 2019-02-16 07:42 | NUR ---
RECEIVED HAND OFF REPORT FROM [facility] NURSE LEILANI. PATIENT AWAKE AND ALERT AT THIS TIME, RN REPORTED GT SUCTION LOW INTERMITTENT SUCTION, NG TUBE INPLACE IN NARE DRAINING TO MED INTERMITTENT SUCTION. ORDER INPLACE FOR LOW CONTINUOUS SUCTION, LEILANI LAUREN UNAWARE OF MISTAKE, CHANGED TO LOW CONTINUOUS SUCTION. PATIENT NOT COMPLAINING OF PAIN AT THIS TIME. CALL LIGHT WITHIN REACH, WILL CONTINUE TO MONIOR
[2019-02-16 08:01] VITALS: BP 131/74
--- NOTE | 2019-02-16 08:30 | NUR ---
PATIENT HAS CLEAR LIQUID DIET AT THIS TIME. REPORTING THAT DR TOLD HER TO HAVE NG TUBE SUCTION HELD SO SHE CAN EAT. REMOVED SUCTION AT THIS TIME SO PATIENT CAN EAT AND AMBULATE TO RESTROOM. CALL LIGHT WITHIN REACH
--- NOTE | 2019-02-16 09:25 | NUR ---
ADMINISTERED MEDICATION PER MAR. PATIENT IN BED SIDE CHAIR AT THIS TIME. NG TUBE CONTINUES TO BE CLAMPED. FAMILY MEMBER AT BEDSIDE. WILL CONTINUE TO MONITOR
[2019-02-16 11:41] VITALS: BP 122/63
--- NOTE | 2019-02-16 14:01 | NUR ---
MEDICATED PATIENT FOR MODERATE PAIN TO ABD 6/10, HELD NG SUCTION FOR MEDICATIONS. DR TYSON IN TO SEE PATIENT, INFORMED PATIENT AND DAUGHTER (VIA PHONE) OF PLANNED SURGERY TOMORROW TO RESECT THE BOWEL AND REMOVE THE MASS. DR CHANGED IV FLUID RATE TO 20ML AND CHANGED DIET TO NPO EXCEPT MEDS. PATIENT AND DAUGHTER MAY NEED FURTHER EDUCATION ABOUT SURGERY. WILL WAIT FOR DAUGHTER TO BE WITH PATIENT TO COMPLIMENT UNDERSTANDING.
--- NOTE | 2019-02-16 15:23 | NUR ---
CALLED AND SPOKE TO TO CLARIFY HIS ORDER ON PULLING NGTUBE W/ 2N GRAZYNA. EXPLAINED AND CLARIFIED THE ORDER ABOUT NGTUBE AND HE SAYS THAT THE NGTUBE IS FAR DOWN THE DUODENUM AND THAT NEEDED TO BE PULLED 2 BLUE GRAZYNA LINES. DEMI LAUREN ASSIGNED TO THIS PT MADE AWARE OF ABOVE.
--- NOTE | 2019-02-16 15:59 | NUR ---
PULLED NGT BACK [address] TYSON ORDER. AUSCULTATED PLACEMENT WITH CHANTEL LAUREN.
[2019-02-16 16:40] VITALS: BP 118/67
--- NOTE | 2019-02-16 16:46 | NUR ---
PATIENT AND FAMILY STILL HAS SOME QUESTIONS ABOUT SCHEDULED PROCEDURE FOR DR TYSON. CALLING DR TYSON TO ADDRESS QUESTIONS AND CONCERNS THAT PATIENT IS HAVING
--- NOTE | 2019-02-16 19:35 | NUR ---
RECEIVED PT FROM DAY SHIFT RN. PT AAOX4. DENIES RUTLEDGE/DIZZINESS. BREATHING EVEN AND UNLABORED ON RA WITH NO SOB NOTED. MED SURG PT DENIES CHEST PAIN/PRESSURE. ABD SOFT/DISTENDED. ACTIVE BOWEL SOUNDS. DENIES ABD PAIN/N/V. NGT TO RIGHT NARE DRAINING BY GRAVITY. PT AMBULATORY. IV LH PATENT, INFUSING WELL. NO SIGNS OF DISTRESS. CALL BUTTON WITHIN REACH. SAFETY PRECAUTIONS IN PLACE. FAMILY AT BEDSIDE. WILL CONTINUE TO MONITOR.
[2019-02-16 20:38] VITALS: BP 134/58
--- NOTE | 2019-02-17 01:30 | NUR ---
ROUNDS MADE. PT RESTING. BREATHING EVEN AND UNLABORED ON RA WITH NO SOB NOTED. IV PATENT, INFUSING WELL. NO SIGNS OF DISTRESS. SAFETY PRECAUTIONS IN PLACE. WILL CONTINUE TO MONITOR.
--- NOTE | 2019-02-17 04:58 | NUR ---
PT SLEPT ON AND OFF THROUGHOUT THE NIGHT WITH NO SIGNS OF DISTRESS. IV PATENT, INFUSING WELL. NO SIGNS OF INFILTRATION. PT AMBULATORY WITH BRP. PT ABLE TO TURN AND REPOSITIONED SELF. PT DENIES ANY PAIN. PT NGT TO RIGHT HARE DRAINING BY GRAVITY PER ODER WITH MINIMAL OUTPUT 10CC DARK YELLOW LIQUID. PT REPORTED HAVING SORE THROAT. PT IN NO SIGNS OF DISTRESS. CALL BUTTON WITHIN REACH. SAFETY PRECAUTIONS IN PLACE. WILL CONTINUE TO MONITOR AND ENDORSE CARE TO DAY SHIFT RN.
[2019-02-17 05:37] VITALS: BP 128/61
[2019-02-17 06:50] LABS: BASOPHIL % 0.3 % (0-2); PLATELET COUNT 262 x10^3mcL (130-400)
--- NOTE | 2019-02-17 06:57 | NUR ---
REPORT GIVEN TO MATTHIAS LAUREN FROM OR, ALL QUESTIONS ADDRESSED.
--- NOTE | 2019-02-17 07:10 | NUR ---
RECEIVED PATIENT AWAKE/ALERT WITH FAMILY MEMBERS WAITING AT BEDSIDE, DR. LIANG AT BEDSIDE TALK TO PATIENT AND FAMILY MEMBERS PRIOR SURGERY, QUESTIONS ADDRESSED. NEEDS MET. CALL LIGHT WITHIN REACH.
[2019-02-17 07:17] LABS: CALCIUM 8.6 mg/dL (8.5-10.1); CARBON DIOXIDE 26.1 mmol/L (21-32); CHLORIDE SERUM 107 mmol/L (98-107); CREATININE SERUM 0.7 mg/dL (0.6-1.0); GFR1 > 60 mL/min; GLUCOSE SERUM 101 mg/dL (74-106); MAGNESIUM 2.4 mg/dL (1.8-2.4); PHOSPHOROUS 4.1 mg/dL (2.5-4.9); POTASSIUM SERUM 3.5 mmol/L (3.5-5.1); SODIUM SERUM 143 mmol/L (136-145)
--- NOTE | 2019-02-17 07:20 | NUR ---
DOMINIC PATIENT IV TO , TRANSPORT HERE FOR PATIENT. TOOK PATIENT VIA BED AND FAMILY ACCOMPANIED.
--- NOTE | 2019-02-17 07:41 | NUR ---
PT IN NO SIGNS OF DISTRESS. ENDORSED CARE TO DAY SHIFT RN, ALL QUESTIONS ADDRESSED. PT LEFT TO OR WITH OR TECH IN NO SIGNS OF DISTRESS.
--- NOTE | 2019-02-17 12:09 | NUR ---
RECEIVED PATIENT FROM RECOVERY VIA BED, AWAKE/ALERT. STILL HAS A LITTLE BIT PAIN. ABD INCISION COVER WITH ABD W/ SCANT DRAINAGE NOTED, ABD BINDER IN PLACE, FAMILY MEMBERS AT BEDSIDE. CONNECT TO IV PUMP. [place] IN PLACE W/ SCANT YELLOW URINE NOTED. CALL LIGHT WITHIN REACH.
--- NOTE | 2019-02-17 12:22 | NUR ---
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 Per progress note (02/17), Pt consulted by general surgeon Dr. Sharma for evaluation of obstructive colonic mass of cancerous origin. Plans for L colon resection today around 0800. Will continue to monitor and follow surgical recommendations. Estimated Nutritional Needs Based on body weight 78.4 kg Energy: 6298-5860 kcal/d (25-30 kcal/kg) Protein: 94-109 g/d (1.2-1.4 g/kg) - adenocarcinoma Fluid: 2387-5376 ml/d (1 ml/kcal) or per doctor Nutrition Diagnosis 1. Inadequate oral intake related to pending procedure as evidenced by patient being NPO since admission.(Patient hvaing surgery today morning). Intervention 1.Recommend CCHO(clear/full liquid) diet per MD's recommendations. Monitor/Evaluate Goal: Have pt meet at least 75% of estimated needs Monitor: PO intake, Labs, GI function F/U in 2-3 days as high risk 02/19-
--- NOTE | 2019-02-17 12:22 | NUR ---
1.Recommend CCHO(clear/full liquid) diet per MD's recommendations.
--- NOTE | 2019-02-17 14:00 | NUR ---
PATIENT SLEEPING AFTER MEDICATED FOR PAIN, AND ZOSYN IVPB DILAUDID 1MG IVP WAS GIVEN BY STUDENT AND PROFESSOR TRUJILLO. PATIENT'S SON REPORT THAT PATIENT IS COMFORTABLE AFTER GOT HER PAIN MED. CONT TO MONITOR.
[2019-02-17 14:20] VITALS: BP 101/52
--- NOTE | 2019-02-17 16:01 | NUR ---
PATIENT RESTING IN BED MORE AWAKE AND FAMILY MEMBERS AT BEDSIDE, REPORT PAIN AGAIN INFORM PATIENT PAIN MED IS DUE AT 5PM; PATIENT'S SON STATE SHE TRY TO SLEEP. NGT ON LOW INTERMITTENT SUCTION W/ GREENISH DRAINAGE NOTED, ABD INCISION DRESSING NOTED DRAINAGE INCREASE BUT NOT SATURATED, CONT TO MONITOR,
[2019-02-17 16:27] VITALS: BP 110/52
--- NOTE | 2019-02-17 17:01 | NUR ---
PATIENT RESTING IN BED, BS 128 NO COVERAGE. CONT TO MONITOR.
--- NOTE | 2019-02-17 17:41 | NUR ---
PATIENT AWAKE/ALERT IN BED WITH SON AT BEDSIDE PATIENT REPORT ABD PAIN COME AND GO 5/10, DILAUDID 1 MG IVP GIVEN TO LH IV PATENT. NGT ON INTERM. SUCTION NO OUTPUT NOTED. ENCOURAGE PATIENT TO EXERCISE HER LUNG BY USING INCENTIVE SPIROMETRY, PATIENT STATE WILL DO LATER WHEN HER PAIN SUBSIDE. CONT TO MONITOR.
--- NOTE | 2019-02-17 18:38 | NUR ---
PATIENT SLEEPING STILL APPEAR COMFORTABLE, IV AND DE [place] ROSA INTACT, NGT ON INTERM SUCTION ORDERED. FAMILY MEMBER REMAIN AT BEDSIDE. CONT TO MONITOR
--- NOTE | 2019-02-17 19:33 | NUR ---
RECEIVED PT FROM DAY SHIFT RN. PT AAOX4. DENIES RUTLEDGE/DIZZINESS. BREATHING EVEN AND UNLABORED ON NC 2L/MIN. NO SOB NOTED. MED SURG PT DENIES CHEST PAIN/PRESSURE. ABD SOFT/DISTENDED. ACTIVE BOWEL SOUNDS. DENIES ABD PAIN/N/V. ABD INCISION COVERED WITH DRESSING, ABD BINDER. NGT TO RIGHT NARE INTERMEDIATE SUCTION. PT AMBULATORY. IV LH PATENT, INFUSING WELL. IV RAC PATENT, SL. F/C IN PLACE DRAINAING YELLOW URINE. NO SIGNS OF DISTRESS. CALL BUTTON WITHIN REACH. SAFETY PRECAUTIONS IN PLACE. FAMILY AT BEDSIDE. WILL CONTINUE TO MONITOR.
[2019-02-17 20:21] VITALS: BP 103/44
--- NOTE | 2019-02-17 21:29 | NUR ---
TPN INITIATED AT THIS TIME, VERIFIED WITH SECOND RN. INFUSING WELL NO SIGNS OF INFILTRATION. NO ACUTE DISTRESS NOTED. WILL CONTINUE TO MONITOR.
--- NOTE | 2019-02-17 21:31 | NUR ---
PPN INITIATED AT THIS TIME, VERIFIED WITH SECOND RN. INFUSING WELL NO SIGNS OF INFILTRATION. NO ACUTE DISTRESS NOTED. WILL CONTINUE TO MONITOR.
--- NOTE | 2019-02-17 21:41 | NUR ---
PT REPORTED ABD PAIN 02/01. MEDICATED PER EMAR. CALL BUTTON WITHIN REACH. SAFETY PRECAUTIONS IN PLACE. WILL CONTINUE TO MONITOR.
[2019-02-18] VITALS (8 sets, daily range): BP systolic 89–117; BP diastolic 35–52
--- NOTE | 2019-02-18 01:00 | NUR ---
ROUNDS MADE. PT RESTING BREATHING EVEN AND UNLABORED NC IN PLACE AT 2L/MIN. WITH NO SOB NOTED. IV PATENT, INFUSING WELL. NO SIGNS OF DISTRESS. TPN INFUSING WELL PER ORDER. CALL BUTTON WITHIN REACH. SAFETY PRECAUTIONS IN PLACE. WILL MONITOR.
--- NOTE | 2019-02-18 01:33 | NUR ---
PT REPORTED HAVING ABD PAIN /10. MEDICATED PER EMAR. CALL BUTTON WITHIN REACH. SAFETY PRECAUTIONS IN PLACE. WILL CONTINUE TO MONITOR.
--- NOTE | 2019-02-18 05:47 | NUR ---
PT REPORTED ABD PAIN 01/01. MEDICATED PER EMAR. CALL BUTTON WITHIN REACH. SAFETY PRECAUTIONS IN PLACE. WILL CONTINUE TO MONITOR.
[2019-02-18 06:23] LABS: BASOPHIL % 0.3 % (0-2); PLATELET COUNT 242 x10^3mcL (130-400)
[2019-02-18 06:29] LABS: RED CELL DISTRIBUTION WIDTH 14.7 % (11.5-14.5)
[2019-02-18 06:35] LABS: CARBON DIOXIDE 24.6 mmol/L (21-32); CHLORIDE SERUM 106 mmol/L (98-107); CREATININE SERUM 0.7 mg/dL (0.6-1.0); GFR1 > 60 mL/min; GLUCOSE SERUM 129 mg/dL (74-106); MAGNESIUM 2.2 mg/dL (1.8-2.4); SODIUM SERUM 139 mmol/L (136-145)
--- NOTE | 2019-02-18 06:40 | NUR ---
PT SLEPT ON AND OFF THROUGHOUT THE NIGHT WITH NO SIGNS OF DISTRESS. IV PATENT, INFUSING WELL. NO SIGNS OF INFILTRATION. PPN INFUSING WELL AT 60ML/HR PER ORDER. PT NGT TO RIGHT NARE TO INTER SUCTION WITH 50 CC DARK LIQUID OUTPUT. PT REPORTED HAVING ABD PAIN THROUGHOUT THE NIGHT, MEDICATED PER EMAR. ABD DRESSING WITH MINIMAL DRAINAGE, ABD BINDER IN PLACE. PT IN NO SIGNS OF DISTRESS. CALL BUTTON WITHIN REACH. SAFETY PRECAUTIONS IN PLACE. WILL CONTINUE TO MONITOR AND ENDORSE CARE TO DAY SHIFT RN.
--- NOTE | 2019-02-18 07:31 | NUR ---
PT IN NO SIGNS OF DISTRESS. ENDORSED CARE TO DAY SHIFT RN, ALL QUESTIONS ADDRESSED.
--- NOTE | 2019-02-18 07:35 | NUR ---
RECEIVED PT FROM [employer]. PT AWAKE, ALERT. A/OX4. PT ON 2LNC WITH NO RESP DISTRESS NOTED. IV ACCESS RAC CDI INFUSING PPN AT 60ML/HR. IV ACCESS LH CDI INFUSING D5NS +20 MEQ KCL AT 50ML/HR. PERIPHERAL PULSES PALPABLE, NO EDEMA NOTED. PT S/P PARTIAL LEFT COLECTOMY, BANDAGE NOTED TO HAV SOME OLD DRAINAGE NOTED. PT ABDOMEN DISTENDED. PT REPORTS PAIN MANAGED WITH DILAUDID Q4 HOURS. PT HAS ABD BINDER. PT HAS NG TUBE TO INTERMITTANT SUCTION. PT HAS DE LA ROSA CATH WITH AMARJIT URINE NOTED. FAMILY AT BEDSIDE. SAFETY MEASURES IN PLACE, BED LOW AND LOCKED. CALL LIGHT WITHIN REACH.
--- NOTE | 2019-02-18 10:25 | NUR ---
PHYSICAL THERAPY WITH PATIENT. PT SITTING IN CHAIR WITH BP OF 74/46. PT PUT PT BACK TO BED. RECHECK BP 88/42. PT ASYMPTOMATIC.
--- NOTE | 2019-02-18 11:07 | NUR ---
DR CASTAÑEDA AT BEDSIDE, NEW ORDERS GIVEN. DISCONTINUED DE [place] ROSA CATHETER WITH 350ML OUT. PLACED NGT TO GRAVITY. CHANGED PT BANDAGE, PHOTO IN CHART. NO REDNESS, SWELLING OR DRAINAGE NOTED.
--- NOTE | 2019-02-18 11:15 | NUR ---
DR PULLIAM AT BEDSIDE. DR AWARE OF PATIENT BLOOD PRESSURE 89/44.
--- NOTE | 2019-02-18 11:28 | NUR ---
DR. HIDALGO AWARE OF PT BLOOD PRESSURE AFTER PHYSICAL THERAPY. NEW ORDER FOR NS BOLUS 500ML.
--- NOTE | 2019-02-18 12:10 | NUR ---
500 ML BOLUS COMPLETE. PT BLOOD PRESSURE 95/45 HR 68 AT THIS TIME. NO ACUTE DISTRESS OR DISCOMFORT AT THIS TIME.
--- NOTE | 2019-02-18 14:24 | NUR ---
PT COMPLAINING OF PAIN TO ABDOMEN 03/03. BP 117/52 HR 74 AT THIS TIME. DILAUDID ADMINISTERED ORDERED PRN. SEE EMAR. WILL MONITOR.
--- NOTE | 2019-02-18 15:30 | NUR ---
PT SLEEPING AT THIS TIME, PAIN MED EFFECTIVE. FAMILY AT BEDSIDE. SAFETY MAINTAINED.
--- NOTE | 2019-02-18 19:02 | NUR ---
PT COMPLAINING OF PAIN AT THIS TIME. BP 100/49 (64) HR 81. UNABLE TO GIVE DILAUDID AT THIS TIME DUE TO LOW BP. WILL CONTINUE TO MONITOR AND ENDORSE CARE TO [employer] INSPECT[employer]. DR ANTONIO AWARE OF LOW BP.
--- NOTE | 2019-02-18 19:20 | NUR ---
RECIEVED PT RESTING IN BED REPORTING PAIN TO ABD, REPOSITIONED PT TO COMFORT AND IMPLEMENTED RELAXATION TECHNIQUES, ASSESSMENT PERFORMED, PT A/OX4 NO COMPLAINTS OF RUTLEDGE OR DIZZINESS, DENIES SOB, NGT TO THE R NARE TO GRAVITY PT ON PPN AT 70 ML PER HOUR, IVS TO THE RH AND LAC. SAFETTY PRECAUTIONS IN PLACE, WILL CONTINUE TO MONITOR
--- NOTE | 2019-02-18 21:25 | NUR ---
PT IN PAIN AND BP 115/39, INFORMED DR ANTONIO THAT ONLY PRN MED AVAILABEL WAS IV DILAUDID 1 MG, AND DIASTOLIC BP WAS LOW, SHE SAID SHE WOULD PUT AN ORDER IN FOR 0.5 MG DOSE AND THAT IT IS OK TO GIVE WITH BP OF 115/39. PT WAS REPOSITIONED TO COMFORT AND UTILIZED DISTRACTION TECHNIQUES TO NO EFFECT
--- NOTE | 2019-02-18 23:04 | NUR ---
PT REQUESTING WARM BLANKET, ALL NEEDS ATTENDED TO WILL CONTINUE TO MONITOR.
--- NOTE | 2019-02-19 01:52 | NUR ---
PT IN PAIN 01/01, BP 106/56, INFORMED DR ANTONIO, SAID SHE WOULD PUT IN ONE TIME DOSE OF 0.5 MG OF DILAUDID AND IT WAS OK TO GIVE WITH THE BLOOD PRESSURE AT 106/56, ADMINISTERED, WILL CONTINUE TO MONITOR.
--- NOTE | 2019-02-19 05:30 | NUR ---
PT RESTED THROUGH THE EVENING AND HAD TWO EPISODEDS OF PAIN TREATED WITH DILAUDID IV WITH DOSE ADJUSTED BY DR ANTONIO TO DUE TO LOWER BP, PAIN MED WAS EFFECTIVE PER PATIENT, DRESSING CDI NO SIGNS OF DRAINAGE PRESENT, ALL PT NEEDS ATTENDED TO SAFETY PRECAUTIONS IN PLACE, DAUGHTER AT BEDSIDE THROUGH NIGHT WILL CONTINUE TO MONITOR AND ENDORSE CARE
[2019-02-19 06:13] VITALS: BP 125/54
--- NOTE | 2019-02-19 06:20 | NUR ---
DR LIMA CALLED AND ASKED ABOUT NGT OUTPUT, PT HAD 10ML , DR ORDERED TO ASPIRATE RESIDUAL AND REMOVE NGT. PT HAD 0ML RESIDUAL, REMOVED NGT, PT TOLERATED WELL
[2019-02-19 06:26] LABS: BASOPHIL % 0.4 % (0-2); PLATELET COUNT 236 x10^3mcL (130-400)
--- NOTE | 2019-02-19 07:20 | NUR ---
RECEIVED PT. IN BED A/A/O X3. NO SOB, NO N/V NOTED. PT. DENIES ANY PAIN AT THIS TIME. PPN RUNNING AT 70 CC/HR VIA IV SITE AT R AC. IV SITE #2 NOTED TO L HAND. BED IN LOW POS., CALL LIGHT WITHIN REACH. SIDE RAILS UP X3. FAMILY AT BEDSIDE. ABD. BINDER IN PLACE.
[2019-02-19 07:30] LABS: RED CELL DISTRIBUTION WIDTH 14.7 % (11.5-14.5)
[2019-02-19 08:57] LABS: CALCIUM 8.3 mg/dL (8.5-10.1); CARBON DIOXIDE 25.3 mmol/L (21-32); CHLORIDE SERUM 105 mmol/L (98-107); CREATININE SERUM 0.6 mg/dL (0.6-1.0); GFR1 > 60 mL/min; GLUCOSE SERUM 124 mg/dL (74-106); MAGNESIUM 2.3 mg/dL (1.8-2.4); PHOSPHOROUS 2.7 mg/dL (2.5-4.9); POTASSIUM SERUM 3.7 mmol/L (3.5-5.1); SODIUM SERUM 140 mmol/L (136-145)
[2019-02-19 09:15] VITALS: BP 102/32
[2019-02-19 11:13] VITALS: BP 103/48
[2019-02-19 16:51] VITALS: BP 110/53
--- NOTE | 2019-02-19 17:00 | NUR ---
CALLED PHARMACY TO REQUEST FOR A NEW PPN BAG SINCE THE CURRENT PPN BAG WILL BE FINISHED IN ABOUT AN HOUR. PHARMACIST CHEYANNE STATED PPN BAG WILL BE DELIVERED TO THE HOSPITAL PHARMACY BY THE PPN COMPANY [employer] AND WILL NOT BE AVAILABLE FOR IV ADMINISTRATION UNTIL 2100 PM [place]. WILL ADMINISTER DEXTROSE 10% ORDERED WHILE AWAITING FOR THE NEW PPN BAG TO ARRIVE.
--- NOTE | 2019-02-19 18:10 | NUR ---
CURRENT PPN BAG IS COMPLETED. DEXTROSE 10% STARTED AT 60 CC/HR ORDERED. WILL CONTINUE TO MONITOR.
--- NOTE | 2019-02-19 19:20 | NUR ---
RECEIVED PT IN BED AWAKE,ALERT,ORIENTED X4. FAMILY AT BEDSIDE. NO SOB NOTED. ON O2 AT 2L VIA N/C. BOWEL SOUNDS HYPOACTIV.E . SHE HAS NO C/O PAIN AT THIS TIME. SX SITE TO ABDOMEN W/ DRESSING CDI. ABDL BINDER IN PLACE. W/ IV D10 AT 60 CC/HR VIA RTAC. W/ HL TO LTAC. CALL LIGHT W/IN REACH.
--- NOTE | 2019-02-19 20:33 | NUR ---
PT C/O PAIN TO SX SITE 01/01. DILAUDID 1 MG IV GIVEN.
[2019-02-19 20:43] VITALS: BP 124/49
--- NOTE | 2019-02-19 23:32 | NUR ---
PT HAD A SMALL SOFT BROWN BM AFTER DULCOLAX SUPPOSITORY.
--- NOTE | 2019-02-20 01:20 | NUR ---
PT HAD ANOTHER SMALL SOFT BM. CLEANED PT AND KEPT COMFORTABLE.
--- NOTE | 2019-02-20 04:51 | NUR ---
PT ASLEEP AT THIS TIME. SHE WAS MEDICATED FOR PAIN TO SX SITE X2 W/ RELIEF. PT HAD SMALL SOFT BM X2 THIS SHIFT. SHE VOIDS VIA BEDPAN W/O DIFFICULTY. PT IS BURPING. DRESSING TO SX SITE INTACT. ABDL BINDER IN PLACE. PPN INFUSING WELL AT 70 CC/HR VIA RTAC. PT'S AT BEDSIDE.
[2019-02-20 05:33] VITALS: BP 118/62
--- NOTE | 2019-02-20 05:45 | NUR ---
PT C/O PAIN TO SX SITE 12/01. DILAUDID 1 MG IV GIVEN. PT ALSO NOTED TO HAVE ANOTHER BM AND WATERY IN CONSISTENCY.
[2019-02-20 06:56] LABS: CALCIUM 8.5 mg/dL (8.5-10.1); CARBON DIOXIDE 24.6 mmol/L (21-32); CHLORIDE SERUM 104 mmol/L (98-107); CREATININE SERUM 0.5 mg/dL (0.6-1.0); GFR1 > 60 mL/min; GLUCOSE SERUM 142 mg/dL (74-106); MAGNESIUM 2.2 mg/dL (1.8-2.4); PHOSPHOROUS 3.9 mg/dL (2.5-4.9); POTASSIUM SERUM 3.8 mmol/L (3.5-5.1); SODIUM SERUM 138 mmol/L (136-145)
--- NOTE | 2019-02-20 07:15 | NUR ---
RECEIVED PT. IN BED A/A/O X3. NO SOB, NO N/V NOTED. PT. DENIES ANY PAIN AT THIS TIME. PPN RUNNING AT 70 CC/HR VIA IV SITE AT R AC. IV SITE #2 NOTED TO Ean BECK. DAUGHTER AT BEDSIDE. ABD. BINDER IN PLACE. BED IN LOW POS., CALL LIGHT WITHIN REACH. SIDE RAILS UP X3.
[2019-02-20 07:26] LABS: BASOPHIL % 0.1 % (0-2); PLATELET COUNT 308 x10^3mcL (130-400); RED CELL DISTRIBUTION WIDTH 14.6 % (11.5-14.5)
[2019-02-20 08:25] VITALS: BP 113/49
--- NOTE | 2019-02-20 12:24 | NUR ---
Follow-up Nutrition Assessment Dx: Abd pain, colitis vs mass Labs: (02/20) BG 142H, Cr 0.5L, WBC 12.5H, BG accuchecks <180 mL/dL x 3 days Meds: Mylanta, Lipitor, Cepacol, Ca Gluconate, D50%, Lovenox, Dilaudid, Insulin, Mg Sulfate, MVI, Zofran, K acetate, K phosphate, NSIV Diet: CLD PO intake: 50% x 1 meal today PPN: D10AA4.25 @ 70 mL/Hr. Provides 734 kcal and 61 g protein. PPN intake: (02/20) 1655 mL Weights: (02/20) 74.8 kg Skin: Sx wound to abdominal region (colon resection) Livan: 19 Edema: None GI: Gastric drainage 50 mL today Last BM: x 2 today No reported events overnight per provider progress notes. Pt. tolerating CLD without reports of GI distress at this time. Ate about 50% breakfast tray today. PPN continuously running at 70 mL/Hr at this time. Continues to receive pain medications around the clock s/p surgical procedure and acute illness related pain. Estimated Nutritional Needs Based on body weight (78.4 kg) Energy: 9551-5979 kcal/day (25-30 kcal/kg) Protein: 94-109 g/day (1.2-1.4 g/kg for adenocarcinoma) Fluid: 1845-2618 mL/day (1 mL/kcal) or per MD Nutrition Diagnosis: 1. Inadequate oral intake r/t current diet order AEB clear liquid diet meeting <75% estimated kcal and protein needs via oral route. (Ongoing-w/PPN, still meeting <75% needs) Intervention: 1. Continue PPN D10AA4.25 at goal rate 70 ml/hr as tolerated. Continue clear liquid diet as ordered and as tolerated. 2. When medically able, advance diet to [facility] for optimal BG management. Monitor/Evaluate: Goal: Have pt meet at least 50% of estimated needs (met) Monitor: PO intake, Labs, GI function, TPN intake/tolerance F/U in 2-3 days as high risk (02/22-02/23)
--- NOTE | 2019-02-20 12:25 | NUR ---
Intervention: 1. Continue PPN D10AA4.25 at goal rate 70 ml/hr as tolerated. Continue clear liquid diet as ordered and as tolerated. 2. When medically able, [facility] for optimal BG management.
--- NOTE | 2019-02-20 15:00 | NUR ---
SPOKE TO THE HOSPITAL PHARMACIST LOLIS Love REGARDING THE CURRENT PPN BAG TO BE RUNNING OUT AROUND 6 PM TODAY. PHARMACIST LOLIS STATED THAT SHE IS AWARE ABOUT THE CURRENT PPN BAG RATE (AT 70 CC/HR) AND THAT THE NEW PPN BAG WILL BE DELIVERED TONIGHT TO [facility] AT 2100 PM. WILL ADMINISTER DEXTROSE 10% WHEN THE CURRENT PPN BAG IS COMPLETED.
[2019-02-20 16:55] VITALS: BP 115/61
--- NOTE | 2019-02-20 18:10 | NUR ---
C/O FEELING NAUSEATED. ZOFRAN 4MG IV GIVEN.
--- NOTE | 2019-02-20 18:11 | NUR ---
PPN BAG COMPLETED. DEXTROSE 10% STARTED AT 60 CC/HR ORDERED WHILE AWAITING FOR THE NEW PPN BAG TO ARRIVE TONIGHT PER PHARMACY.
--- NOTE | 2019-02-20 19:30 | NUR ---
RECEIVED PT AWAKE, ALERT,ORIENTED X4 AND TALKING TO VISITORS AT BEDSIDE. NO SOB NOTED. BOWEL SOUNDS ACTIVE. DRESSING TO ABDL SX SITE CDI. ABDL BINDER IN PLACE. PT STATED PAIN IS MINIMAL AND TOLERABLE AT THIS TIME. W/ IV D10 AT 60 CC/HR VIA RTAC. W/ HL TO LTAC INTACT. CALL LIGHT W/IN REACH.
--- NOTE | 2019-02-20 20:00 | NUR ---
PT HAD LOOSE BM VIA BEDPAN. CLEANED PT AND KEPT COMFORTABLE.
--- NOTE | 2019-02-20 20:35 | NUR ---
PT C/O POST OP PAIN MORE ON THE LT FLANK 12/01. DILAUDID 1 MG IV GIVEN.
[2019-02-20 20:44] VITALS: BP 129/50
--- NOTE | 2019-02-20 21:15 | NUR ---
IV TO RT AC W/ REDNESS AND MILD PAIN. IV REMOVED. STARTED NEW IV ( FOR PPN) ON THE RT HAND. PT TOLERATED PROCEDURE WELL.
--- NOTE | 2019-02-21 05:11 | NUR ---
PT SLEPT FAIRLY. SHE WAS MEDICATED FOR PAIN X2. SHE HAD LOOSE BM X1 THIS SHIFT. ON CLEAR LIQUIDS. NO EPISODE OF N/V. DRESSING TO SX SITE CDI. ABDL BINDER IN PLACE. PPN INFUSING WELL AT 70 CC/HR VIA RT HAND. ALL NEEDS ATTENDED TO.
[2019-02-21 05:15] VITALS: BP 118/61
--- NOTE | 2019-02-21 06:20 | NUR ---
PT C/O PAIN TO SX SITE 12/01. DILAUDID 1 MG IV GIVEN.
[2019-02-21 06:34] LABS: BASOPHIL % 0.4 % (0-2); PLATELET COUNT 338 x10^3mcL (130-400)
[2019-02-21 06:51] LABS: RED CELL DISTRIBUTION WIDTH 14.8 % (11.5-14.5)
[2019-02-21 07:20] LABS: CALCIUM 8.4 mg/dL (8.5-10.1); CARBON DIOXIDE 28.5 mmol/L (21-32); CHLORIDE SERUM 103 mmol/L (98-107); CREATININE SERUM 0.6 mg/dL (0.6-1.0); GFR1 > 60 mL/min; GLUCOSE SERUM 125 mg/dL (74-106); MAGNESIUM 2.1 mg/dL (1.8-2.4); PHOSPHOROUS 3.9 mg/dL (2.5-4.9); POTASSIUM SERUM 3.5 mmol/L (3.5-5.1); SODIUM SERUM 139 mmol/L (136-145)
--- NOTE | 2019-02-21 07:42 | NUR ---
A+OX4, NO RESPRIATORY DISTRESS NOTED, STATES ABD PAIN TOLERABLE AT THIS TIME 09/01, MEDSURG, PULSES MODERATE AND EQUAL CATHY, NO EDEMA NOTED, LUNG SOUNDS DIMINISHED, 2L NC, BOWEL SOUNDS ACTIVE, VOIDING FREELY, GENERALIZED WEAKNESS, ABD INCISION WITH ELOY AND DRESSING AND ABD BINDER CDI, IV IN L HAND SALINE LOCKED SITE WNL, IV IN R HAND WITH PPN @ 70 ML/HR, SITE WNL.
[2019-02-21 08:33] VITALS: BP 108/51
--- NOTE | 2019-02-21 09:23 | NUR ---
PT RESTING IN BED, NO RESPRIATORY DISTRESS NOTED, STATES PAIN IS TOLERABLE AT THIS TIME, CALL LIGHT WITHIN REACH, FAMILY AT BEDSIDE.
--- NOTE | 2019-02-21 11:44 | NUR ---
PT RESTING IN BED, NO RESPIRATORY DISTRESS NOTED, COMPLAINING OF 9/10 PAIN AT INCISION SITE, DILAUDID IVP GIVEN. DRESSING TO ABD INCISION CHANGED WITH ABD PAD AND FOAM TAPE. PER PT, DR CASTAÑEDA ASSESSED INCISION AND REMOVED PACKING. CALL LIGHT WITHIN REACH.
--- NOTE | 2019-02-21 13:14 | NUR ---
T RESTING IN BED, NO RESPRIATORY DISTRESS NOTED, STATES PAIN IS TOLERABLE AT THIS TIME, TOLERATING REG DIET, DENIES NAUSEA AND VOMITING AT THIS TIME, DAUGHTER AT BEDSIDE, CALL LIGHT WITHIN REACH.
--- NOTE | 2019-02-21 15:52 | NUR ---
PT COMPLAINING OF 10/10 PAIN AT INCISION SITE, DILAUDID IVP GIVEN, NO RESPRIATORY DISTRESS NOTED, DAUGHTER AT BEDSIDE, CALL LIGHT WITHIN REACH.
--- NOTE | 2019-02-21 17:06 | NUR ---
PT RESTING IN BED, NO RESPRIATORY DISTRESS NOTED, STATES PAIN IS TOLERABLE AT THIS TIME, DAUGHTER AT BEDSIDE, CALL LIGHT WITHIN REACH.
[2019-02-21 17:14] VITALS: BP 110/43
--- NOTE | 2019-02-21 17:56 | NUR ---
PHYSICAL THERAPY DAILY NOTES CO-SIGN All documentation done by the Floor Coverings Installer for 02/19/19 has been reviewed. I agree with the documentation. Reviewed/Co-Signed by: Walker Peres PT Documentation Done by:KUSH HOOK LIQUOR GRINDING MILL OPERATOR LATE ENTRY FOR 02/19/19; POC REVIEWED W/ LIQUOR GRINDING MILL OPERATOR.
--- NOTE | 2019-02-21 19:42 | NUR ---
ENDORSED CARE TO FRANNIE LAUREN.
--- NOTE | 2019-02-21 20:00 | NUR ---
PT C/O 01/01 ABD PAIN DESCRIBED ACHING. MEDICATED WITH PRN DILAUDID PER JUL. WILL CONTINUE TO MONITOR.
--- NOTE | 2019-02-21 21:17 | NUR ---
RECEIVED PT FROM AM NURSE ASTRID. PT LAYING DOWN IN BED WITH FAMILY AT BEDSIDE. PT AAOX4, ABLE TO MAKE NEEDS KNOWN. MED-SURG. DENIES CP/ PRESSURE AT THIS TIME. PALPABLE PULSES TO ALL EXTREMETIES. NO EDEMA NOTED. LUNG SOUNDS DIMINISHED TO CATHY BASES. BREATHING EVEN AND UNLABORED ON 2L NC. NO ACUTE DISTRESS NOTED. ABD SOFT AND NONDISTENDED. ACTIVE BS X4 QUAD. LAST BM 02/21. C/O LOOSE STOOL X2 TODAY. VOIDS FREELY BRP. GENERALIZED WEAKNESS. AMBULATORY WITH ASSIST. ABD INSICION COVERED WITH DRESSING, DREESSING CDI. ABD BINDER IN PLACE. IV TO RH INFUSING PPN AT 70ML/HR. IV TO LH SALINE LOCKED. SITES WNL. BED AT LOWEST SETTING. SIDE RAILS X2 UP. CALL LIGHT WITHING REACH. WILL CONTINUE TO MONITOR.
[2019-02-21 21:43] VITALS: BP 104/49
--- NOTE | 2019-02-21 22:30 | NUR ---
PPN FINISHED AT THIS TIME. PT C/O PAIN AT IV SITE TO RH. IV REMOVED WITH CATH INTACT.
--- NOTE | 2019-02-21 23:55 | NUR ---
PT C/O 01/01 ABD PAIN. MEDICATED WITH PRN DILAUDID PER JUL. NO ACUTE DISTRESS NOTED. WILL CONTINUE TO MONITOR.
--- NOTE | 2019-02-22 00:08 | NUR ---
PT LAYING DOWN IN BED WITH EYES CLOSED. BREATHING EVEN AND UNLBORED ON RA. NO ACUTE DISTRESS NOTED. BED AT LOWEST SETTING. SIDE RAILS X2 UP. CALL LIGHT WITHING REACH. WILL CONTINUE TO MONITOR.
--- NOTE | 2019-02-22 03:52 | NUR ---
PT C/O 02/01 ABD PAIN, MEDICATED WITH PRN DILAUDID PER JUL. NO ACUTE DISTRESS NOTED. WILL CONTINUE TO MONITOR.
--- NOTE | 2019-02-22 05:41 | NUR ---
PT SLEPT AT INTERVALS THROUGHOUT THE NIGHT, BREATHING EVEN AND UNLABORED ON 2L NC. NO ACUTE CHANGES DURING SHIFT. ALL NEEDS ASSESSED AND ATTENDED TO. IV TO LH INFUSING D5 1/2 NS AT 40ML/HR. SITE WNL. BED AT LOWEST SETTING. SIDE RAILS X2 UP. CALL LIGHT WITHING REACH. WILL ENDORSE CARE TO AM NURSE.
[2019-02-22 05:44] VITALS: BP 107/42
[2019-02-22 06:40] LABS: BASOPHIL % 0.5 % (0-2); PLATELET COUNT 298 x10^3mcL (130-400)
[2019-02-22 06:50] LABS: RED CELL DISTRIBUTION WIDTH 14.6 % (11.5-14.5)
[2019-02-22 06:57] LABS: CALCIUM 8.3 mg/dL (8.5-10.1); CARBON DIOXIDE 27.4 mmol/L (21-32); CHLORIDE SERUM 104 mmol/L (98-107); CREATININE SERUM 0.6 mg/dL (0.6-1.0); GFR1 > 60 mL/min; GLUCOSE SERUM 106 mg/dL (74-106); PHOSPHOROUS 4.2 mg/dL (2.5-4.9); POTASSIUM SERUM 3.6 mmol/L (3.5-5.1); SODIUM SERUM 140 mmol/L (136-145)
[2019-02-22 08:06] VITALS: BP 105/50
--- NOTE | 2019-02-22 08:47 | NUR ---
PATIENT IN BED C/O ABD PAIN 8/10; VICE PRESIDENT SAFETY AGUILA W/ CN AT BEDSIDE ROUND ON PATIENT, DISCUSS PAIN MANAGEMENT INFORM PATIENT PLANNING TO DISCHARGE PATIENT, WILL CHANGE PAIN MED TO ORAL, AIDE ASSIST TRANSLATE FOR PATIENT IN [facility]. DR. CASTAÑEDA SEE PATIENT AND EXAM INCISION, PATIENT ABD SOFT DISTENDED, ADMINISTERED MYLANTA PO, DILAUDID 1MG IVP AND LOVENOX SQ TO RT LLQ. PT AT BEDSIDE IS GOING TO WORK WITH PT. UPDATE POC W/ DTR FAITHIA AT BEDSIDE. PATIENT AMBULATE W/ PT IN HALLWAY.
--- NOTE | 2019-02-22 11:41 | NUR ---
PATIENT SAT IN CHAIR AT THIS TIME, FAMILY MEMBERS AT BEDSIDE. STATE PAIN IS BETTER. BS 87 NO COVERAGE NOTED. NEEDS MET. CALL LIGHT WITHIN REACH.
--- NOTE | 2019-02-22 14:35 | NUR ---
PATIENT RESTING IN BED REPORT PAIN IS MILD, PATIENT ASK FOR WARM COMPRESS; WARM COMPRESS GIVEN. CALL LIGHT WITHIN REACH.
--- NOTE | 2019-02-22 15:03 | NUR ---
PHYSICAL THERAPY DAILY NOTES CO-SIGN All documentation done by the Ear Pull Machine Operator for 02/22/19 has been reviewed. I agree with the documentation. Reviewed/Co-Signed by: Gissel Bryant PT Documentation Done by:HENRY GOMEZ PTA
[2019-02-22 16:30] VITALS: BP 108/46
--- NOTE | 2019-02-22 16:35 | NUR ---
PATIENT RESTING IN BED AWAKE/ALERT, CHECK BS 47 ASYMPTOMATIC. ORANGE JUICE AND APPLESAUCE GIVEN, TORADOL 30MG IVP GIVEN FOR ABD PAIN 01/01. PATIENT SIT UP IN CHAIR AT THIS TIME. WILL RECHECK IN 30 MIN. CONT TO MONITOR.
--- NOTE | 2019-02-22 16:57 | NUR ---
AFTER INTERVENTION RECHECK BS 90 CONT TO MONITOR.
--- NOTE | 2019-02-22 17:46 | NUR ---
PATIENT UP IN CHAIR FOR DINNER, PAIN IS TOLERABLE. FAMILY MEMBERS AT BEDSIDE. NEEDS MET. CONT TO MONITOR
--- NOTE | 2019-02-22 18:15 | NUR ---
PATIENT WALKING IN THE HALLWAY WITH SON. REPORT MILD PAIN.
--- NOTE | 2019-02-22 19:20 | NUR ---
RECEIVED PT FROM AM NURSE ASTRID. PT LAYING DOWN IN BED WITH FAMILY AT BEDSIDE. PT AAOX4, ABLE TO MAKE NEEDS KNOWN. MED-SURG. DENIES CP/ PRESSURE AT THIS TIME. PALPABLE PULSES TO ALL EXTREMETIES. NO EDEMA NOTED. LUNG SOUNDS DIMINISHED TO CATHY BASES. BREATHING EVEN AND UNLABORED ON RA. NO ACUTE DISTRESS NOTED. ABD SOFT AND NONDISTENDED. ACTIVE BS X4 QUAD. LAST BM 02/22. C/O LOOSE STOOL TODAY. VOIDS FREELY BRP. GENERALIZED WEAKNESS. AMBULATORY WITH ASSIST. ABD INSICION COVERED WITH DRESSING, DREESSING CDI. ABD BINDER IN PLACE. IV INFUSING WELL . SITES WNL. BED AT LOWEST SETTING. SIDE RAILS X2 UP. CALL LIGHT WITHING REACH. WILL CONTINUE TO MONITOR.
[2019-02-22 20:32] VITALS: BP 112/46
--- NOTE | 2019-02-22 22:00 | NUR ---
PT C/O 4/10 PAIN AT HER ABD INCISION. MEDICATED WITH PRN TYLENOL PER JUL. NO ACUTE DISTRESS NOTED. WILL CONTINUE TO MONITOR.
--- NOTE | 2019-02-23 00:05 | NUR ---
PT LAYING DOWN IN BED WITH EYES CLOSED. BREATHING EVEN AND UNLABORED ON RA. NO ACUTE DISTRESS NOTED. BED AT LOWEST SETTING. SIDE RAILS X2 UP. CALL LIGHT WITHING REACH. WILL CONTINUE TO MONITOR.
--- NOTE | 2019-02-23 00:40 | NUR ---
PT C/O 11/01 ABD PAIN. MEDICATED WITH PRN TORADOL PER JUL. NO ACUTE DISTRESS NOTED. WILL CONTINUE TO MONITOR.
[2019-02-23 05:50] VITALS: BP 125/55
[2019-02-23 06:11] LABS: BASOPHIL % 0.5 % (0-2); PLATELET COUNT 282 x10^3mcL (130-400); RED CELL DISTRIBUTION WIDTH 14.2 % (11.5-14.5)
--- NOTE | 2019-02-23 06:17 | NUR ---
PT SLEPT AT INTERVALS THROUGHOUT THE NIGHT. BREATHING EVEN AND UNLABORED ON RA. PT C/O 09/01 ABD PAIN. MEDICATED WITH PRN TYLENOL PER JUL. NO SIGNIFICANT CHANGES DURING SHIFT. ALL NEEDS ASSESSED AND ATTENDED TO. IV TO LH INFUSING WELL. SITE WNL. BED AT LOWEST SETTING. SIDE RAILS X2 UP. CALL LIGHT WITHING REACH. WILL ENDORSE CARE TO AM NURSE.
[2019-02-23 06:20] LABS: CALCIUM 8.5 mg/dL (8.5-10.1); CARBON DIOXIDE 27.4 mmol/L (21-32); CHLORIDE SERUM 107 mmol/L (98-107); CREATININE SERUM 0.7 mg/dL (0.6-1.0); GFR1 > 60 mL/min; GLUCOSE SERUM 102 mg/dL (74-106); POTASSIUM SERUM 3.7 mmol/L (3.5-5.1); SODIUM SERUM 142 mmol/L (136-145)
--- NOTE | 2019-02-23 07:30 | NUR ---
PATIENT RESTING IN BED, NO ACUTE DISTRESS NOTED. PATIENT A/OX4, DENIES HEADACHE. LUNG SOUNDS CTA, INCENTIVE SPIROMETER AT BEDSIDE. PATEINT DENIES PAIN. GENERALIZED WEAKNESS NOTED, WALKER AT BEDSIDE. ABDOMINAL DRESSING CDI WITH ABDOMINAL BINDER. D5 1/2 NS INFUSING TO LEFT HAND AT 20ML/HR, IV SITE CDI & PATENT, NO S/S OF INFILTRATION. CALL LIGHT WITHIN REACH, BED IN LOW POSITION, WILL CONTINUE TO MONITOR.
[2019-02-23 09:15] VITALS: BP 125/41
[2019-02-23] MEDS ORDERED: LIPI10 PO (09:59)
[2019-02-23] MEDS ORDERED: TRAMADOL HCL50 MG PO (09:59)
--- NOTE | 2019-02-23 11:18 | NUR ---
PATIENT WAS C/O PAIN 10/01 TO ABDOMEN, MEDICATED PATIENT WITH TORADOL PER PROTOCOL (SEE EMAR). EDUCATED PATIENT ON PAIN MANAGEMENT, PATIENT VERBALIZES UNDERSTANDING. WILL CONTINUE TO MONITOR PATIENT.
--- NOTE | 2019-02-23 13:00 | NUR ---
PROVIDED PATIENT WITH DRESSING CHANGE TO ABDOMEN, EDUCATED PATIENT ON WOUND CARE, PATIENT VERBALIZED UNDERSTANDING. PHOTOS TAKEN OF DRESSING AND PLACED IN CHART. WILL CONTINUE TO MONITOR.
[2019-02-23 13:11] VITALS: BP 125/41
--- NOTE | 2019-02-23 15:11 | NUR ---
PHYSICAL THERAPY DAILY NOTES CO-SIGN All documentation done by the Residential Program Coordinator for 02/23/19 has been reviewed. I agree with the documentation. Reviewed/Co-Signed by: Gissel Bryant PT Documentation Done by:HENRY GOMEZ PTA
--- NOTE | 2019-02-23 15:30 | NUR ---
PATIENT WAS DISCHARGED HOME, PATIENT RECEIVED COPY OF D/C INSTRUCTIONS, PATIENT & FAMILY UNDERSTAND & AGREE WITH DISCHARGE INSTRUCTIONS AND PLAN OF CARE, INCLUDING FOLLOW UP WITH PCP, DR. CASTAÑEDA, AND DR. BETANCOURT & MEDICATIONS. IV TO TO LEFT HAND REMOVED, CATH INTACT. PATIENT WANTED TO KEEP [place], PATIENT AWARE THAT PERSONAL INFO IS WRITTEN ON [place]. PATIENT UNDERSTANDS RISK. PATIENT DENIED PAIN UPON DISCHARGE, ALL QUESTIONS AND CONCERNS ADDRESSED. REVIEWED WOUND CARE INSTRUCTIONS WITH DAUGHTER. PATIENT TAKEN DOWN VIA WHEELCHAIR BY BUSHING PRESS OPERATOR.
== END 2019-02-23 15:28 | disposition home or self-care (01) | DRG 231 ==
LOC: ED 18:38 → MU 20:52
PROVIDERS: General Practice; Internal Medicine Gastroenterology; Surgery; ADMIT Internal Medicine
PROC: 0DBN8ZX Excision of Sigmoid Colon, Via Natural or Artificial Opening Endoscopic, Diagnostic (ICD-10-PCS; 2019-02-11 12:00)
PROC: 0DBN0ZZ Excision of Sigmoid Colon, Open Approach (ICD-10-PCS; principal; 2019-02-17 07:30)
DX: C18.7 Malignant neoplasm of sigmoid colon (principal); K56.690 Other partial intestinal obstruction; E44.0 Moderate protein-calorie malnutrition; E11.65 Type 2 diabetes mellitus with hyperglycemia; I10 Essential (primary) hypertension; E87.6 Hypokalemia; E83.39 Other disorders of phosphorus metabolism; Z68.25 Body mass index [BMI] 25.0-25.9, adult; Z79.84 Long term (current) use of oral hypoglycemic drugs
CPT/HCPCS: 45378; 82962; 83880; 84439; 88344; 88361; 97110-GP; 97116-GP; 97530-GP; C9113; G0378; J0330; J0690; J0744; J1170; J1200; J1610; J1650; J1885; J2060; J2250; J2310; J2405; J2543; J2704; J2710; J3010; J3480; J3490; J7030; J7040; J7042; J7050; Q0092; Q0163; Q9966; Q9967

== ENCOUNTER 2020-06-02 16:01 | Emergency (ER) | payer MEDICAID ==
[~2020-06-02] VITALS: Ht 170.2 cm; Wt 79.2 kg
[~2020-06-02 16:01] MED LIST changes: +ASPIR 8181 MG PO; +EPZICOM1 TAB; +EPZICOM1 TAB PO; +FLA500 PO; +GOOD SENSE OMEP20 MG PO; +JANUMET 50-1,01 EACH PO; +LEVEMIR100 U/M1 SQ; +LEVOFLOXACIN500 M1 PO; +METOPROLOL TART25 M1 PO; +NAPROXEN1 POW PO; +SIMVASTATIN20 M1 PO; +TRAMADOL HCL50 MG PO; +ZOFRAN8 MG PO
[2020-06-02 16:15] VITALS: Ht 170.2 cm; Wt 79.2 kg
[2020-06-02 17:12] LABS: BASOPHIL % 0.5 % (0.2-1.3); PLATELET COUNT 183 x10^3mcL (179-408); RED CELL DISTRIBUTION WIDTH 13.8 % (12.3-17.7)
[2020-06-02 18:27] LABS: CALCIUM 9.4 mg/dL (8.5-10.1); CARBON DIOXIDE 23.9 mmol/L (21-32); CHLORIDE SERUM 102 mmol/L (98-107); CREATININE SERUM 0.6 mg/dL (0.6-1.0); GFR1 > 60 mL/min; GLUCOSE SERUM 126 mg/dL (74-106); SODIUM SERUM 137 mmol/L (136-145)
[2020-06-02 18:34] LABS: ALBUMIN 3.8 g/dL (3.4-5.0); ALKALINE PHOSPHATASE 160 U/L (46-116); ALT/SGPT 60 U/L (14-59); AST/SGOT 34 U/L (15-37); BILIRUBIN DIRECT 0.16 mg/dL (0.0-0.2); BILIRUBIN TOTAL 0.7 mg/dL (0.20-1.00); LIPASE 182 IU/L (73-393)
[2020-06-02 18:42] LABS: UA SPECIFIC GRAVITY 1.015 (1.005-1.035); microscopic required? YES; urine erythrocyte NEGATIVE (NEGATIVE)
[2020-06-02 18:51] LABS: TOTAL PROTEIN, SERUM 8.4 g/dL (6.4-8.2)
[2020-06-03 00:50] VITALS: BP 135/81
== END 2020-06-03 00:50 | disposition home or self-care (01) ==
LOC: ED 16:01
PROVIDERS: Emergency Medicine
DX: N30.00 Acute cystitis without hematuria (principal); I10 Essential (primary) hypertension; E11.9 Type 2 diabetes mellitus without complications
CPT/HCPCS: Q9967